=== PATIENT | female | born 1950 | race Caucasian/White ===

== ENCOUNTER → 2016-04-28 | Day surgery (SDC) | payer OTHER ==
[2016-04-17 14:06] VITALS: BMI 34.0
[~2016-04-28] VITALS: Ht 149.9 cm; Wt 79.1 kg
[~2016-04-28] MED LIST: ASPI-435 PO; BUME0.5T3 PO; CLX20 PO; CYCL10TA6 PO; DYZ PO; ERGO500037 PO; GABA-112 PO; GLAT1INJ INJ; LIDOCAINE HCL 2% 2 ML VIAL (20MG/ML) ONE; MCRK20 PO; MIDAZOLAM HCL 1 MG/ML 2ML VIAL ONE; NEBI10TA2 PO; ONDANSETRON INJ 2 MG/ML 2 ML VIAL ONE; PRLSR20 PO; PROPOFOL IV EMULSION 10 MG/ML 20 ML VIAL IV ONE; SIMV20TA2 PO; SODIUM CHLORIDE 0.9% 500ML 500 ML IV ONE
--- NOTE | 2016-04-28 13:00 | Endo History and Physical ---
History & Physical Date of Service: Apr 28, 2016. Chief Complaint: Gastric ulcers Referring Physician: Dr. Flores History of Present Illness 66 yo CF who presents for EGD secondary to gastric ulcers. Past Medical History High Cholesterol, Hypertension, CVA/TIA, Other Past Surgical History Hx Cardiac Surgery: No Hx Internal Defibrillator: No Hx Pacemaker: No Hx Abdominal Surgery: Yes (RACHEL, EXPLORATORY LAP, APPY, PARTIAL HYSTER) Hx of Implantable Prosthesis: No Hx Post-Op Nausea and Vomiting: No Hx Cancer Surgery: No Hx Thoracic Surgery: No Hx Orthopedic: Yes (BACK SURGERY X7, LT ANKLE SURGERY S/P BREAK, LT SHOULDER) Hx Urinary Tract Surgery: Yes (UNSUCCESSFUL KIDNEY STONE RETRIEVAL) Family History Colon CA Social History Smoking Status: Current Every Day Smoker Hx Substance Use: No Hx Alcohol Use: Yes (SOCIALLY) Allergies Uncoded Allergies: STEROIDS (Allergy, Unknown, "I'M JUST OUT OF MY MIND AND HAVE SEIZURE-LIKE ACTIVITY", 02/11/16) Current Medications Reported Home Medications Medications Dose Route/Sig Max Daily Dose Days Date Category Dose Instructions Flexeril (Cyclobenzaprine Hcl) 10 Mg Tab 10 Mg PO TID 03/07/16 Reported Vitamin D 06123 Unit (Ergocalciferol) 50,000 Unit Cap 50,000 Unit PO WK 02/11/16 Reported Bumetanide 0.5 Mg Tab 1 Tab PO QAM 02/11/16 Reported Aspirin 81 (Aspirin) 81 Mg Tab 1 Tab PO QAM 02/11/16 Reported Neurontin (Gabapentin) 100 Mg Cap 100 Mg PO TID 02/11/16 Reported Prilosec (Omeprazole) 20 Mg Capcr 20 Mg PO QAM 02/11/16 Reported Copaxone (Glatiramer Acetate) 40 Mg/Ml Inj 1 Ml INJ UD 02/11/16 Reported Thursday/Thursday/Thursday Bystolic (Nebivolol Hcl) 10 Mg Tab 10 Mg PO HS 11/09/12 Reported Klor-Con (Potassium Chloride) 20 Meq Tabcr 20 Meq PO BID 11/09/12 Reported Celexa * (Citalopram Hydrobromide) 40 Mg Tab 0.5 Tab PO HS 02/05/11 Reported Dyazide 37.5MG/25MG * (Triamterene/HCTZ) Cap 1 Tab PO QAM 02/03/11 Reported Zocor (Simvastatin) 20 Mg Tab 20 Mg PO HS 02/03/11 Reported Celexa * (Citalopram Hydrobromide) 40 Mg Tab 40 Mg PO QAM 02/03/11 Reported Vital Signs Weight (Kilograms): 79.09 Height (Feet): 4 Height (Inches): 11.5 Physical Exam General Appearance: WD/WN, no apparent distress Respiratory/Chest: Auscultation: breath sounds normal Cardiovascular: Heart Auscultation: RRR Abdomen: Bowel Sounds: normal Inspection & Palpation: soft, non-distended, no tenderness, guarding & rebound Assessment and Plan Assessment: 66 yo CF who presents for EGD secondary to gastric ulcers. Plan: Proceed with EGD.
[2016-04-28 13:02] VITALS: Ht 149.9 cm; Wt 79.1 kg
--- NOTE | 2016-04-28 13:44 | GI REPORT ---
Procedure Date: 04/28/2016 1:27 PM THIS REPORT HAS BEEN AMENDED Addendum Number: 1 Addendum Date: 05/20/2016 1:30:57 PM No specimens were obtained during this procedure, and therefore, no pathology is pending. Patient is to continue current therapy and followup in our office for persistent symptoms. Procedure: Upper GI endoscopy Indications: Follow-up of acute gastric ulcer Medicines: Monitored Anesthesia Care Complications: No immediate complications. Estimated Blood Loss: Estimated blood loss: none. Procedure: Pre-Anesthesia Assessment: - Prior to the procedure, a History and Physical was performed, and patient medications and allergies were reviewed. The patient's tolerance of previous anesthesia was also reviewed. The risks and benefits of the procedure and the sedation options and risks were discussed with the patient. All questions were answered, and informed consent was obtained. Prior Anticoagulants: The patient has taken aspirin, last dose was 1 day prior to procedure. ASA Grade Assessment: II - A patient with mild systemic disease. After reviewing the risks and benefits, the patient was deemed in satisfactory condition to undergo the procedure. After obtaining informed consent, the endoscope was passed under direct vision. Throughout the procedure, the patient's blood pressure, pulse, and oxygen saturations were monitored continuously. The scope was introduced through the mouth, and advanced to the second part of duodenum. The upper GI endoscopy was accomplished without difficulty. The patient tolerated the procedure well. Findings: The esophagus was normal. Localized mild inflammation characterized by erosions was found in the gastric antrum. The examined duodenum was normal. Impression: - Normal esophagus. - Gastritis. - Normal examined duodenum. - No specimens collected. Recommendation: - Resume previous diet. - Continue present medications. - Await pathology results. - Return to GI clinic as previously scheduled. Geraldo Ada Love, 04/28/2016 1:44:02 PM This report has been signed electronically. Note Initiated On: 04/28/2016 1:27 PM I attest to the content of the Intraoperative Record and orders documented therein, exceptions below Geraldo Caballero Ivan, DO 05/20/2016 1:31:49 PM This report has been signed electronically.
--- NOTE | 2016-04-28 13:44 | Discharge Instructions ---
Endoscopy Patient Instructions Date / Procedure(s) Performed Apr 28, 2016. EGD Allergy Information Uncoded Allergies: STEROIDS (Allergy, Unknown, "I'M JUST OUT OF MY MIND AND HAVE SEIZURE-LIKE ACTIVITY", 02/11/16) Discharge Date / Findings Apr 28, 2016. Gastritis s/p biopsies Medication Instructions Stopped Medication(s): hold all except the BP meds taken. OK to resume all medications today as prescribed. Reported Home Medications Medications Dose Route/Sig Max Daily Dose Days Date Category Dose Instructions Flexeril (Cyclobenzaprine Hcl) 10 Mg Tab 10 Mg PO TID 03/07/16 Reported Vitamin D 53610 Unit (Ergocalciferol) 50,000 Unit Cap 50,000 Unit PO WK 02/11/16 Reported Bumetanide 0.5 Mg Tab 1 Tab PO QAM 02/11/16 Reported Aspirin 81 (Aspirin) 81 Mg Tab 1 Tab PO QAM 02/11/16 Reported Neurontin (Gabapentin) 100 Mg Cap 100 Mg PO TID 02/11/16 Reported Prilosec (Omeprazole) 20 Mg Capcr 20 Mg PO QAM 02/11/16 Reported Copaxone (Glatiramer Acetate) 40 Mg/Ml Inj 1 Ml INJ UD 02/11/16 Reported Thursday/Thursday/Thursday Bystolic (Nebivolol Hcl) 10 Mg Tab 10 Mg PO HS 11/09/12 Reported Klor-Con (Potassium Chloride) 20 Meq Tabcr 20 Meq PO BID 11/09/12 Reported Celexa * (Citalopram Hydrobromide) 40 Mg Tab 0.5 Tab PO HS 02/05/11 Reported Dyazide 37.5MG/25MG * (Triamterene/HCTZ) Cap 1 Tab PO QAM 02/03/11 Reported Zocor (Simvastatin) 20 Mg Tab 20 Mg PO HS 02/03/11 Reported Celexa * (Citalopram Hydrobromide) 40 Mg Tab 40 Mg PO QAM 02/03/11 Reported Provider Instructions Activity Restrictions - No exercising or heavy lifting for 24 hours. - Do not drink alcohol the day of the procedure. - Do not drive a car or operate machinery until the day after the procedure. - Do not make any important decisions or sign important papers in 24 hours after the procedure. Following Day: - Return to full activity which may include returning to work/school. Diet Start your diet with liquids and light foods (jello, soup, juice, toast). Then eat your usual diet if not nauseated. Treatment For Common After Affects For mild abdominal pain, bloating, or excessive gas: - Rest - Eat lightly - Lie on right side Follow-Up Information Follow-up with Quinton Flores M.D. as scheduled Anesthesia Information What You Should Know You have had a procedure that required some medicine to reduce anxiety and discomfort. This treatment is called moderate sedation. After receiving the treatment, you may be sleepy, but you will be able to breathe on your own. The effects of the treatment may last for several hours. Follow these instructions along with Activity/Diet recommendations noted above: * Do NOT do anything where dizziness or clumsiness would be dangerous. * Rest quietly at home today, then you can be up and about tomorrow. * Have a responsible person stay with you the rest of today. * You may have had an I.V. today. If so, you may take the dressing off later today. Recommendations Call your doctor if: * Trouble breathing * Continuous vomiting for more than 24 hours * Temperature above 101 degrees * Severe abdominal pain or bloating * Pain not relieved by pain medicine ordered * There is increased drainage or redness from any incision * A large amount of rectal bleeding greater than 2-3 tablespoons. (If you had a polyp/s removed or have hemorrhoids, a small amount of blood - from the rectum is to be expected.) * You have any unanswered questions or concerns. IN THE EVENT OF A SERIOUS EMERGENCY, GO TO THE NEAREST EMERGENCY ROOM Your discharge instructions were prepared by provider Geraldo Love. Patient Instructions Signature Page Deshawnnancy Rgchristina Patient (or Guardian) Signature/Date: I have read and understand the instructions given to me by my caregivers. Caregiver/RN/Doctor Signature/Date: The above-named patient and/or guardian has received patient instructions on this date. + Original Patient Signature Page (only) stays with chart. Please make copy for patient.
--- NOTE | 2016-04-28 13:55 | Anesthesiology Progress Note ---
Anesthesia Post Op Note Date & Time Apr 28, 2016 at 13:55 Vital Signs Pain Intensity: 0 Vital Signs Past 12 Hours Date Time Temp Pulse Resp B/P Pulse Ox O2 Delivery O2 Flow Rate FiO2 04/28/16 13:43 59 16 90/48 95 Mask 5 04/28/16 13:11 36.4 73 18 132/68 96 Room Air Notes Mental Status: alert / awake / arousable, participated in evaluation Pt Amnestic to Procedure: Yes Nausea / Vomiting: adequately controlled Pain: adequately controlled Airway Patency, RR, SpO2: stable & adequate BP & HR: stable & adequate Hydration State: stable & adequate Anesthetic Complications: no major complications apparent
[2016-04-28 14:13] VITALS: BP 104/54; PULSE 69; O2SAT 93
== END | disposition home or self-care (01) ==
LOC: C.GI 12:21 → MERGE 12:21
PROVIDERS: ATTEND Internal Medicine
DX: K29.70 Gastritis, unspecified, without bleeding (principal); E78.00 Pure hypercholesterolemia, unspecified; I10 Essential (primary) hypertension; F17.200 Nicotine dependence, unspecified, uncomplicated; Z79.82 Long term (current) use of aspirin; Z86.73 Personal history of transient ischemic attack (TIA), and cerebral infarction without residual deficits; Z90.710 Acquired absence of both cervix and uterus; Z90.49 Acquired absence of other specified parts of digestive tract; Z87.442 Personal history of urinary calculi; Z80.0 Family history of malignant neoplasm of digestive organs

== ENCOUNTER → 2016-05-19 | Outpatient (CLI) | payer OTHER ==
[~2016-05-19] MED LIST changes: -LIDOCAINE HCL 2% 2 ML VIAL (20MG/ML) ONE; -MIDAZOLAM HCL 1 MG/ML 2ML VIAL ONE; -ONDANSETRON INJ 2 MG/ML 2 ML VIAL ONE; -PROPOFOL IV EMULSION 10 MG/ML 20 ML VIAL IV ONE; -SODIUM CHLORIDE 0.9% 500ML 500 ML IV ONE
[2016-05-19 14:39] LABS: BASO % 0.5 %; BASO ABS # 0.04 K/uL (0-0.2); COMPLETE YES; EOS % 2.1 %; HEMATOCRIT 49.1 % (37-47); IG% 0.2 %; LYMPH % 34.3 %; LYMPH ABS # 2.88 K/uL (1.2-3.4); MEAN CELL VOLUME 88.6 fL (80-100); MEAN CORPUSCULAR HEMOGLOBIN 29.8 pg (25-34); MEAN CORPUSCULAR HGB CONC 33.6 g/dl (32-36); MEAN PLATELET VOLUME 11.6 fL (7.4-10.4); MONO % 7.3 %; NEUT % 55.6 %; PLATELET COUNT 283 K/uL (130-400); RED BLOOD COUNT 5.54 M/uL (4.2-5.4); WHITE BLOOD COUNT 8.39 K/uL (4.8-10.8)
[2016-05-19 15:13] LABS: ALT/SGPT 23 U/L (12-78); AST/SGOT 13 U/L (15-37); BLOOD UREA NITROGEN 23 mg/dl (7-18); BUN/CREATININE RATIO 20.9 (10-20); CALCIUM 9.2 mg/dl (8.5-10.1); CARBON DIOXIDE 29 mmol/L (21-32); CHLORIDE 96 mmol/L (98-107); CHOLESTEROL 150 mg/dl (0-200); GLUCOSE 96 mg/dl (70-99); POTASSIUM 2.8 mmol/L (3.5-5.1); SODIUM 137 mmol/L (136-145)
[2016-05-19 15:22] LABS: ALB/GLOB RATIO 0.9 (0.9-2); ALKALINE PHOSPHATASE 119 U/L (45-117); CHOLESTEROL/HDL RATIO 3.2; HDL CHOLESTEROL 47 mg/dl; LDL CHOLESTEROL CALCULATED 62 mg/dl; TRIGLYCERIDES 203 mg/dl (0-150); VERY LOW DENSITY LIPOPROT CALC 41 mg/dl
[2016-05-20 06:36] LABS: ESTIMATED AVERAGE GLUCOSE 108 mg/dl; HA1C FLAG Normal (Normal)
== END | disposition home or self-care (01) ==
LOC: MERGE 13:00 → C.LAB 13:00
PROVIDERS: ATTEND Hospitalist
DX: I10 Essential (primary) hypertension (principal); E55.9 Vitamin D deficiency, unspecified; E78.00 Pure hypercholesterolemia, unspecified; E53.8 Deficiency of other specified B group vitamins; E10.9 Type 1 diabetes mellitus without complications; R53.1 Weakness

== ENCOUNTER → 2016-05-27 | Outpatient (CLI) | payer OTHER ==
[~2016-05-27] MED LIST changes: +GADAVIST IV PRN
--- NOTE | 2016-05-27 14:07 | DIAGNOSTIC IMAGING REPORT ---
Brain MRI WITH AND WITHOUT CONTRAST HISTORY: Multiple sclerosis. Follow-up. TECHNIQUE: Multiplanar multisequence MRI of the brain was performed both before and after the intravenous administration of contrast. COMPARISON STUDY: Brain MRI 05/29/2015. FINDINGS: Stable small retention cyst within the right maxillary sinus. Punctate old lacunar infarct within the right cerebellar hemisphere. There is no hematoma, midline shift, or acute infarct. The ventricles and sulci are within normal limits. The major vascular flow voids at the skull base are maintained. The midline structures are intact. Increase in size in the 11 x 8 x 5 mm T2 hyperintense, T1 hypointense extra-axial enhancing mass within the right parafalcine location best seen on image 18 of the axial T1 postcontrast sequences. This favors a meningioma. No additional areas of enhancement within the brain to suggest active demyelination. There again noted multiple scattered areas of T2 hyperintensity within the periventricular and subcortical white matter of the supratentorial brain. This is consistent with the patient's history of multiple sclerosis. The white matter plaques are not significantly changed in size, number, or distribution. IMPRESSION: 1. No significant change in the scattered white matter plaques within the supratentorial brain consistent with the patient's history of multiple sclerosis. No evidence for active demyelination. 2. Increase in size in the 11 x 8 x 5 mm extra-axial enhancing right parafalcine mass. This likely represents a meningioma. Continued follow-up is recommended to assess for stability. Electronically signed by: Medhat Salinas M.D. 05/27/2016 2:05 PM Dictated Date/Time: 05/27/2016 1:56 PM
--- NOTE | 2016-05-27 15:29 | DIAGNOSTIC IMAGING REPORT ---
MRI OF THE CERVICAL SPINE COMBO CLINICAL HISTORY: Multiple sclerosis. Neck pain. COMPARISON STUDY: MRI of the cervical spine dated 06/20/2011. TECHNIQUE: MRI of the cervical spine is performed utilizing various T1 and T2-weighted sequences in the axial and sagittal planes. Contrast-enhanced sequences are acquired following the IV administration of 8 cc of Gadavist. The examination is modestly degraded by motion artifact. FINDINGS: Cervical spine: Vertebral body height and alignment are maintained throughout the cervical spine. No destructive bony process is seen. Marrow signal intensity is homogeneous. The atlantodental articulation appears maintained. The spinous processes are intact. A tiny hemangioma is noted in the body of T2. Intervertebral discs: There is mild degenerative disc desiccation seen throughout the cervical spine. No loss of height is identified. Spinal cord: The cervical spinal cord is normal in morphology and signal intensity. No foci of abnormal enhancement are identified on the postcontrast images. MRI of the brain performed concurrently on 05/27/2016. C2-C3: Unremarkable. C3-C4: There is a tiny posterior disc osteophyte complex eccentric to the left. Uncovertebral and facet arthropathy cause mild to moderate left and minimal right neural foraminal stenosis. C4-C5: A posterior disc osteophyte complex effaces the ventral subarachnoid space. Uncovertebral and facet arthropathy cause moderate left and minimal right neural foraminal stenosis. C5-C6: Unremarkable. C6-C7: Unremarkable. C7-T1: Unremarkable. Soft tissues: The prevertebral and paraspinous soft tissues are within normal limits. Brain parenchyma: A T2-hyperintense plaque is identified in the josafat. The cerebellar tonsils are normal in configuration. Periventricular white matter change is also identified. IMPRESSION: 1. The cervical spinal cord is normal in morphology and signal intensity. 2. Minimal spondylotic change as above. The central canal is widely patent. 3. T2-hyperintense plaques are noted in the brain parenchyma at the skull base. See report of MRI of the brain performed concurrently for detailed intracranial findings. Dictated: 05/27/2016 2:56 PM Transcribed: 05/27/2016 3:29 PM Almaz Electronically signed by: Elvis Terrell M.D. 05/27/2016 3:35 PM Dictated Date/Time: 05/27/2016 2:56 PM
== END | disposition home or self-care (01) ==
LOC: C.MRI 12:15
PROVIDERS: ATTEND Psychiatry & Neurology Neurology
DX: G35 Multiple sclerosis (principal); R22.0 Localized swelling, mass and lump, head

== ENCOUNTER → 2017-06-24 | Outpatient (CLI) | payer OTHER ==
[2017-06-24 08:04] LABS: BLOOD UREA NITROGEN 30 mg/dl (7-18); CREATININE 1.55 mg/dl (0.60-1.20)
--- NOTE | 2017-06-24 10:47 | DIAGNOSTIC IMAGING REPORT ---
BRAIN COMBO FOR MS CLINICAL HISTORY: 67 years-old Female presenting with G35 Multiple sclerosis M54.12 Cervical radiculopathy, gait disturbance, leg weakness. TECHNIQUE: Multisequence, multiplanar MR imaging of the brain was performed before and after the administration of intravenous contrast. IV contrast: 8 mL of Gadavist. COMPARISON: 05/27/2016. FINDINGS: Ventricles and sulci normal in size. Redemonstration of extensive T2/FLAIR hyperintense foci of abnormal signal within subcortical white matter, centrum semiovale, and waggoner radiata. The corpus callosum is involved. Allowing for the extensive involvement, there is no significant change in size, number, or distribution of white matter lesions. No associated restricted diffusion or enhancement. No mass effect or midline shift. No hemorrhage. No extra-axial fluid collection. However, redemonstration of the extra-axial avidly enhancing mass along the right aspect falx cerebri at the level of the central sulcus. This mass now measures 12 x 8 x 13 mm, previously 8 x 5 x 11 mm. A prominent dural tail is evident. T2 skull base flow voids preserved. Bone marrow signal intensity within the calvarium within normal limits. Bilateral [place]ct[place] lenses are absent. IMPRESSION: 1. Slight interval increase in size of the presumed meningioma along the right aspect of the falx cerebri at the level of the central sulcus. 2. No synechia change in size, number, distribution of white matter lesions, which could be compatible with demyelinating disease though these are nonspecific. No enhancement or restricted diffusion to suggest active disease. Electronically signed by: Jonh Jett M.D. 06/24/2017 10:45 AM Dictated Date/Time: 06/24/2017 10:36 AM
--- NOTE | 2017-06-24 10:54 | DIAGNOSTIC IMAGING REPORT ---
CERVICAL SPINE COMBO CLINICAL HISTORY: 67 years-old Female presenting with G35 Multiple sclerosis M54, leg weakness, gait disturbance, cervical reticular with the. TECHNIQUE: Multisequence, multiplanar MR imaging of the cervical spine was performed before and after the administration of intravenous contrast. IV contrast: 8 mL of Gadavist. COMPARISON: 05/27/2016. FINDINGS: Localizer images: Unremarkable. Normal cervical lordosis. Vertebral bodies maintain normal height, alignment, bone marrow signal intensity. Diffuse intervertebral disc desiccation with small disc osteophyte complexes noted at nearly every level to varying degrees. Multilevel degenerative changes further detailed below: C2-3: No significant neural foraminal or spinal canal stenosis. C3-4: Left uncovertebral hypertrophy results in mild left neural foraminal narrowing. Mild effacement of the left lateral recess without contouring of the spinal cord. C4-5: Disc osteophyte complex results in central effacement of the anterior thecal sac without contouring the spinal cord. No significant neural foraminal narrowing. C5-6: No significant neural foraminal or spinal canal stenosis. C6-7: Small disc osteophyte complex and uncovertebral hypertrophy result in mild bilateral neural foraminal narrowing. No significant spinal canal stenosis. C7-T1: No cervical neural foraminal or spinal canal stenosis. Cervical spinal cord normal in morphology and signal intensity. No focal spinal cord lesion. No abnormal enhancement on postcontrast imaging. No paraspinal muscular edema. Paraspinal soft tissues within normal limits. IMPRESSION: 1. No evidence of a spinal cord lesion to suggest to mildly disease. 2. Mild multilevel degenerative changes with mild neural foraminal narrowing evident on the left at C3-4 and mild bilateral at C6-7. No significant spinal canal stenosis. Electronically signed by: Jonh Jett M.D. 06/24/2017 10:53 AM Dictated Date/Time: 06/24/2017 10:45 AM
== END | disposition home or self-care (01) ==
LOC: C.MRI 07:21
PROVIDERS: ATTEND Psychiatry & Neurology Neurology
DX: M47.22 Other spondylosis with radiculopathy, cervical region (principal); R94.02 Abnormal brain scan; G35 Multiple sclerosis; R29.898 Other symptoms and signs involving the musculoskeletal system; W19.XXXA Unspecified fall, initial encounter

== ENCOUNTER → 2017-07-27 | Outpatient (CLI) | payer OTHER ==
--- NOTE | 2017-07-27 10:10 | DIAGNOSTIC IMAGING REPORT ---
THORACIC SPINE MRI WITH AND WITHOUT CONTRAST HISTORY: G35 Multiple [id number] Leg weakness, bilateral TECHNIQUE: Multiplanar multisequence MRI of the thoracic spine was performed both before and after the intravenous administration of contrast. COMPARISON: Brain MRI 06/24/2017. Cervical spine MRI 06/24/2017. FINDINGS: No fractures or subluxation within the thoracic spine. Posterior decompression fusion from T12 through the lumbar spine with pedicle screws and rods. Small broad-based posterior disc bulges seen from T7 through T11 resulting in minimal central canal narrowing. As also small focal central disc protrusion at T6-T7 resulting in minimal anterior cord deformity. The thoracic spinal cord demonstrates a normal signal intensity. No abnormal enhancement within the thoracic spine or thoracic spinal cord. Mild to moderate bilateral neural foraminal narrowing seen within the lower thoracic spine most pronounced at the T9-T10 and T10-T11 levels. Paraspinal soft tissues are unremarkable. An 8 mm cyst within the left kidney. No epidural masses or fluid collections identified. IMPRESSION: 1. No abnormal signal intensity or enhancement within the thoracic spinal cord to suggest demyelinating disease. 2. Degenerative changes within the mid to lower thoracic spine as described above. 3. Posterior decompression and fusion seen at T12 and extending into the lumbar spine Electronically signed by: Medhat Salinas M.D. 07/27/2017 10:09 AM Dictated Date/Time: 07/27/2017 9:56 AM
== END | disposition home or self-care (01) ==
LOC: C.MRI 08:06
PROVIDERS: ATTEND Physician Assistant
DX: M47.814 Spondylosis without myelopathy or radiculopathy, thoracic region (principal); G35 Multiple sclerosis; R29.898 Other symptoms and signs involving the musculoskeletal system

== ENCOUNTER 2020-01-05 11:33 | Observation (INO) ==
[2020-01-05 12:45] LABS: Basophils # (auto) 0.03 K/uL (0-0.2); Basophils % (auto) 0.3 %; Eosinophils # (auto) 0.11 K/uL (0-0.5); Eosinophils % (auto) 0.9 %; Hematocrit (blood only) 39.6 % (37-47); Hemoglobin 13.3 g/dL (12.0-16.0); Immature Granulocytes # (auto) 0.02 K/uL (0.00-0.02); Immature Granulocytes % (auto) 0.2 %; Lymphocytes # (auto) 1.72 K/uL (1.2-3.4); Lymphocytes % (auto) 14.8 %; Mean Corpuscular Hgb Conc 33.6 g/dL (32-36); Mean Corpuscular Volume 95.4 fL (80-100); Mean Platelet Volume 9.8 fL (7.4-10.4); Monocytes # (auto) 0.41 K/uL (0.11-0.59); Monocytes % (auto) 3.5 %; Neutrophils # (auto) 9.33 K/uL (1.4-6.5); Neutrophils % (auto) 80.3 %; Platelet Count 304 K/uL (130-400); RDW Coefficient of Variation 14.7 % (11.5-14.5); RDW Standard Deviation 50.8 fL (36.4-46.3); Red Blood Count 4.15 M/uL (4.2-5.4); White Blood Count 11.62 K/uL (4.8-10.8)
[2020-01-05 12:46] LABS: Appearance Urine Clear (Clear); Bacteria Urine Automated Negative (Negative); Bilirubin Urine Negative (Negative); Blood Urine Negative (Negative); Color Urine Yellow; Epithelial Cell Urine Auto >30 /lpf (0-5); Glucose Urine UA Negative (Negative); Ketones Urine Negative (Negative); Leukocyte Esterase Urine 1+ (Negative); Nitrite Urine Negative (Negative); Protein Urine Trace (Negative); RBC Urine Automated 0-4 /hpf (0-4); Specific Gravity Urine 1.015 (1.000-1.030); Urobilinogen Urine Negative (Negative); WBC Urine Automated >30 /hpf (0-5); pH Urine 5.5 (4.5-7.5)
[2020-01-05] MEDS ORDERED: ONDANSETRON INJ 2 MG/ML 2 ML VIAL IV STA (13:12)
[2020-01-05] MEDS ORDERED: cefTRIAXone SODIUM 1,000 MG/50 ML BAG IV STA (13:12)
[2020-01-05] MEDS ORDERED: MoRPHine SULFATE 10 MG/ML CARP/VIAL IV STA (13:12)
--- NOTE | 2020-01-05 13:12 | Emergency Department Note ---
Impression & Plan Acute flank pain, Acute pyelonephritis, Acute UTI ED Provider Note NAME: JASWINDER PHELPS AGE: 69 SEX: F : 1950 ARRIVES VIA: Walk-In INFORMANT: Patient ED PROVIDER(S): Daryl Banuelos DO CHIEF COMPLAINT: Left flank pain HPI: Patient is a 69-year-old female who presents the ER for left flank pain. This has been present for the past 1.5 weeks. It has gradually moved from her back to the left flank. 8 out of 10. History of cholecystectomy, appendectomy and partial hysterectomy. She does have some urinary frequency over the past couple days. She notes she has to push to pee. She had blood work done by her PCP and showed she had acute kidney injury and was referred in for further evaluation. She denies any nausea vomiting or diarrhea. No other exacerbating or remitting factors. No fevers above 100.4. ROS: See above HPI for pertinent positives & negatives. A total of 10 systems reviewed and were otherwise negative. PAST MEDICAL HISTORY:See Below PAST SURGICAL HISTORY:See Below FAMILY HISTORY:See Below SOCIAL HISTORY:See Below HOME MEDICATIONS:See Below ALLERGIES:See Below VITALS:See Below PHYSICAL EXAMINATION: GENERAL: Sitting up in bed, obese, alert, holding left flank, moderate distress EYE EXAM: normal conjunctiva OROPHARYNX: no exudate, no erythema, lips, buccal mucosa, and tongue normal and mucous membranes are moist NECK: supple, no nuchal rigidity, no adenopathy, non-tender LUNGS: Clear to auscultation. Normal chest wall mechanics HEART: no murmurs, S1 normal and S2 normal ABDOMEN: abdomen soft, non-tender, normo-active bowel sounds, no masses, no rebound or guarding. BACK: Back is symmetrical on inspection and there is no deformity, no midline tenderness, tenderness throughout left flank SKIN: no rashes and no bruising UPPER EXTREMITIES: upper extremities are grossly normal. LOWER EXTREMITIES: No pitting edema. NEURO EXAM: Normal sensorium, cranial nerves II-XII grossly intact, normal speech, no gross weakness of arms, no gross weakness of legs. MEDICAL DECISION MAKING: Patient is a 69-year-old female who presents ER for left flank pain which is been severely worsening. Urinary frequency present. IV was established blood work was obtained. Labs show leukocytosis 11.6 thousand. No significant anemia. BMP with mild hypokalemia. Creatinine slightly elevated at 1.9 up from a baseline of 1.2. LFTs bilirubin was unremarkable. UA with white cells and leukocytes which does suggest UTI although was contaminated with epithelial cells. Patient was seen and evaluated by PCP. Creatinine was elevated. She was referred in for admission. CT abdomen pelvis was fairly unremarkable. Patient was updated and given IV antibiotics including Rocephin and fluids as well as IV morphine. Discussed with hospitalist for further evaluation. Triage Nursing notes reviewed. Prior medical records reviewed Vital Signs: reviewed and remarkable for HTN Differential diagnosis: Differential diagnoses includes but is not limited to gastritis, peptic ulcer disease, GERD, gallbladder disease, pancreatitis, small bowel obstruction, acute coronary syndrome, pericarditis, ischemic bowel, irritable bowel disease, irritable bowel syndrome, appendicitis, diverticulitis, malignancy, hernia, urinary tract infection, torsion, [/ectopic (if female)], perforation, trauma, infectious. ER treatment provided: See below Diagnostics interpreted by me: ECG: none Cardiac Monitoring: An order was placed for continuous cardiac monitoring. The monitor shows a rate of 60 with sinus rhythm. Laboratory studies: As stated above and show below. Imaging studies: CT abdomen pelvis was unremarkable Consultation(s): Discussed with Dr. Jovanny Hurst for further evaluation ED COURSE: Procedures: none Critical Care: None Past Med/Surg History Medical History (Updated 01/05/20 @ 18:45 by Daryl Banuelos DO) Multiple sclerosis Urinary incontinence Social History Smoking Status: Current every day smoker Tobacco Type: Cigarettes Second Hand Exposure: Yes; Do You Dip or Chew Tobacco: No; Tobacco Cessation Education Requested by Patient: No Hx Alcohol Use: No Hx Substance Use: No Preferred Language: Slovak Beliefs That Will Affect Care: None Current Living Situation: Spouse Other Information That Helps Us Care for You: No Feels Safe at Home: Yes Safety Concerns: Feels Safe At This Time Assistive Devices: Denture - Upper and Glasses Allergies Allergies Allergy/AdvReac Type Severity Reaction Status Date / Time STEROIDS Allergy Unknown "I'M JUST Uncoded 01/05/20 12:59 OUT OF MY MIND AND HAVE SEIZURE-LIKE ACTIVITY" Home Meds Home Medications Medication Instructions Recorded Confirmed [id number] 1 tab PO QAM 04/18/19 01/05/20 oxybutynin chloride 5 mg 5 mg PO QAM PRN tab 04/18/19 01/05/20 tablet,extended release 24 hr cholecalciferol (vitamin D3) 125 5,000 units PO QAM tab 04/25/19 01/05/20 mcg (5,000 unit) tablet clonazepam 1 mg tablet 2 mg PO HS tab 04/25/19 01/05/20 escitalopram oxalate 20 mg tablet 30 mg PO QAM tab 04/25/19 01/05/20 furosemide 40 mg tablet 40 mg PO QAM tab 04/25/19 01/05/20 melatonin 10 mg capsule 10 mg PO HS cap 04/25/19 01/05/20 simvastatin 20 mg tablet 20 mg PO QAM tab 04/25/19 01/05/20 aspirin 81 mg PO QAM 01/05/20 01/05/20 cranberry 1,000 mg PO QAM 01/05/20 01/05/20 ibuprofen 600 mg PO Q6H PRN 01/05/20 01/05/20 nebivolol [Bystolic] 10 mg PO QAM 01/05/20 01/05/20 oxycodone 5 mg PO Q6H PRN 01/05/20 01/05/20 Results & Data (ED) Vital Signs Vital Signs - 24 hr 01/05/20 11:37 01/05/20 12:31 01/05/20 13:00 Temperature 36.9 C Temperature Source Oral Pulse Rate 70 60 63 Respiratory Rate 20 19 21 Respiratory Effort / Characteristics Non-Labored Respiratory Depth Normal Blood Pressure 145/62 H 140/55 L 119/66 Blood Pressure Mean 89 89 75 Pulse Oximetry 95 95 96 Oxygen Delivery Method Room Air Sepsis Recent Fever Within 48 Hours No Sepsis New/Unexplained Change in Mental Status N/A Sepsis Action Taken by Nursing No Action Required 01/05/20 14:31 01/05/20 15:00 01/05/20 15:31 Temperature Temperature Source Pulse Rate 70 65 64 Respiratory Rate 17 20 23 Respiratory Effort / Characteristics Respiratory Depth Blood Pressure 114/56 L 118/55 L 128/86 Blood Pressure Mean 70 75 103 Pulse Oximetry 96 95 96 Oxygen Delivery Method Sepsis Recent Fever Within 48 Hours Sepsis New/Unexplained Change in Mental Status Sepsis Action Taken by Nursing Laboratory Data Result diagrams: 01/05/20 12:30 01/05/20 12:30 Lab Results 01/05/20 01/05/20 01/05/20 Range/Units 12:30 12:30 12:30 WBC 11.62 H (4.8-10.8) K/uL RBC 4.15 L (4.2-5.4) M/uL Hgb 13.3 (12.0-16.0) g/dL Hct 39.6 (37-47) % MCV 95.4 (80-100) fL MCH 32.0 (25-34) pg MCHC 33.6 (32-36) g/dL RDW Std Deviation 50.8 H (36.4-46.3) fL RDW Coeff of Job 14.7 H (11.5-14.5) % Plt Count 304 (130-400) K/uL MPV 9.8 (7.4-10.4) fL Immature Gran % (Auto) 0.2 % Neut % (Auto) 80.3 % Lymph % (Auto) 14.8 % Bracken % (Auto) 3.5 % Eos % (Auto) 0.9 % Baso % (Auto) 0.3 % Neut # (Auto) 9.33 H (1.4-6.5) K/uL Lymph # (Auto) 1.72 (1.2-3.4) K/uL Bracken # (Auto) 0.41 (0.11-0.59) K/uL Eos # (Auto) 0.11 (0-0.5) K/uL Baso # (Auto) 0.03 (0-0.2) K/uL Immature Gran # (Auto) 0.02 (0.00-0.02) K/uL Sodium 140 (136-145) mmol/L Potassium 3.1 L (3.5-5.1) mmol/L Chloride 107 (98-107) mmol/L Carbon Dioxide 24 (21-32) mmol/L Anion Gap 9.0 (3-11) BUN 23 H (7-18) mg/dl Creatinine 1.88 H (0.6-1.2) mg/dl Est Cr Clr Drug Dosing 23.9 ml/min Est GFR ( Amer) 30.6 Est GFR (Non-Af Amer) 26.4 BUN/Creatinine Ratio 12.1 (10-20) Glucose 187 H (70-99) mg/dl Calcium 9.2 (8.5-10.1) mg/dl Total Bilirubin 0.4 (0.2-1) mg/dl AST 20 (15-37) U/L ALT 30 (12-78) U/L Alkaline Phosphatase 90 (45-117) U/L Total Protein 7.6 (6.4-8.2) gm/dl Albumin 3.5 (3.4-5.0) gm/dl Globulin 4.1 H (2.5-4.0) gm/dl Albumin/Globulin Ratio 0.9 (0.9-2) Specimen Hemolysis Urine Color Yellow Urine Appearance Clear (Clear) Urine pH 5.5 (4.5-7.5) Ur Specific [place] 1.015 (1.000-1.030) Urine Protein Trace H (Negative) Urine Glucose (UA) Negative (Negative) Urine Ketones Negative (Negative) Urine Blood Negative (Negative) Urine Nitrite Negative (Negative) Urine Bilirubin Negative (Negative) Urine Urobilinogen Negative (Negative) Ur Leukocyte Esterase 1+ H (Negative) Urine WBC (Auto) >30 H (0-5) /hpf Urine RBC (Auto) 0-4 (0-4) /hpf U Hyaline Cast (Auto) 1-5 (0-5) /lpf U Epithel Cells (Auto) >30 H (0-5) /lpf Urine Bacteria (Auto) Negative (Negative) Administered Medications Hydromorphone HCl (Hydromorphone Inj 0.5 Mg/0.5 Ml Syr) 0.5 mg IV Q1H PRN PRN Reason: Severe Pain Stop: 01/19/20 17:37 Last Admin: 01/05/20 17:47 Dose: 0.5 mg Documented by: [id number] Potassium Chloride 40 meq/ (Sodium Chloride) 1,020 mls @ 150 mls/hr IV .Q6H48M [facility] Stop: 02/04/20 17:37 Last Admin: 01/05/20 18:35 Dose: 150 mls/hr Documented by: [id number] Insulin Aspart (Insulin Aspart 100 Units/Ml 3 Ml Pen) 0 units SC ACHS [facility] Stop: 02/04/20 17:37 Last Admin: 01/05/20 17:55 Dose: Not Given Documented by: [id number] Cosigned by: [id number] Lidocaine (Lidocaine 5% 1 Patch) 1 patch TD QAM [facility] Stop: 02/04/20 17:37 Last Admin: 01/05/20 18:35 Dose: 1 patch Documented by: [id number] Discontinued Medications Diphenhydramine HCl (Diphenhydramine Hcl 50 Mg/Ml Vial) 25 mg IV NOW STA Stop: 01/05/20 13:47 Last Admin: 01/05/20 14:09 Dose: 25 mg Documented by: [id number] Ceftriaxone Sodium (Rocephin) 1,000 mg in 50 mls @ 100 mls/hr IV NOW STA Stop: 01/05/20 13:41 Last Infusion: 01/05/20 13:39 Dose: 0 mls/hr Documented by: [id number] Admin: 01/05/20 13:21 Dose: 100 mls/hr Documented by: [id number] Sodium Chloride (Nss 1000ml) 1,000 mls @ 999 mls/hr IV .Q1H1M ONE Stop: 01/05/20 16:50 Last Admin: 01/05/20 16:55 Dose: 999 mls/hr Documented by: [id number] Morphine Sulfate (Morphine Sulfate 10 Mg/Ml Carp/Vial) 6 mg IV NOW STA Stop: 01/05/20 13:13 Last Admin: 01/05/20 13:20 Dose: 6 mg Documented by: [id number] Ondansetron HCl (Ondansetron Inj 2 Mg/Ml 2 Ml Vial) 4 mg IV NOW STA Stop: 01/05/20 13:13 Last Admin: 01/05/20 13:20 Dose: 4 mg Documented by: [id number] Oxycodone HCl (Oxycodone Hcl Ir 5 Mg Tab (Immediate Release)) 5 mg PO NOW STA Stop: 01/05/20 15:34 Last Admin: 01/05/20 16:09 Dose: 5 mg Documented by: [id number] Discharge Plan Visit Data Chief Complaint: Illness Stated Complaint: ACUTE RENAL FAILURE SENT BY TO ER ED Provider: Daryl Banuelos Discharge Problem: Acute flank pain, Acute pyelonephritis, Acute UTI Patient Disposition: Admitted As Inpatient Discharge Instructions Interventions: ED Discharge Assessment Last Done: 01/05/20 17:21
[2020-01-05 13:13] LABS: Albumin Globulin Ratio 0.9 (0.9-2); Albumin Level 3.5 gm/dl (3.4-5.0); BUN Creatinine Ratio 12.1 (10-20); Bilirubin,Total 0.4 mg/dl (0.2-1); Calcium 9.2 mg/dl (8.5-10.1); Creatinine Clr Calc Pharmacy 23.9 ml/min; Est GFR (African American) 30.6; Est GFR (Non-African American) 26.4; Globulin 4.1 gm/dl (2.5-4.0); Potassium 3.1 mmol/L (3.5-5.1); Total Protein 7.6 gm/dl (6.4-8.2)
[2020-01-05] MEDS ORDERED: diphenhydrAMINE 50 MG/ML VIAL IV STA (13:46)
--- NOTE | 2020-01-05 14:23 | CT Scan Report ---
ABDOMEN AND PELVIS CT WITHOUT CONTRAST CT DOSE: 884.19 mGycm HISTORY: Left flank pain. TECHNIQUE: Multiaxial CT images of the abdomen and pelvis were performed without contrast. A dose lo wering technique was utilized adhering to the principles of ALARA. COMPARISON STUDY: None. FINDINGS: No ureteral stones. No hydronephrosis. A 1.3 cm hypodense lesion within the lower pole the left kidney. This is technically indeterminate on this noncontrast study but favors a cyst. There is mild left cortical renal scarring. There is 7 mm subpleural nodule within the right lower lobe on ronal ge 32. A few bibasilar linear densities consistent with subsegmental atelectasis. No pneumoperitoneum . No pneumatosis. Posterior decompression fusion within the spine from T12 through S1. The associated pedicle screws and rods appear intact. Severe disc space narrowing within the lower thoracic spine. Cholecystectomy. The unenhanced liver, spleen, right adrenal gland, and pancreas are within normal li mits. Mild thickening of the left adrenal gland. There is suggestion of a punctate stone within the u pper pole of the left kidney on image 114. The uterus is surgically absent. Normal bladder. Normal ca liber abdominal aorta. There are few prominent left retroperitoneal lymph nodes. Dominant lymph node measures 9 mm in short axis diameter. No bowel wall thickening or obstruction. Colonic diverticulosis . No evidence for acute diverticulitis. The appendix is not identified and reportedly surgically abse nt. IMPRESSION: 1. Possible punctate stone within the upper pole of the left kidney. No ureteral stones. No hydroneph rosis. 2. A few borderline-enlarged left para-aortic lymph nodes. 3. No definite bowel wall thickening or obstruction. 4. Colonic diverticulosis. No evidence for acute diverticulitis. 5. A 7 mm subpleural nodule within the right lower lobe. Please refer to the chart below for recommen ded follow-up. 6. Prior cholecystectomy, hysterectomy, and appendectomy. 7. Postoperative changes within the spine. Please refer to below summary of Fleischner criteria recommendations for follow-up of incidental CT n odules (Tayler Daniel, Guidelines for management of small pulmonary nodules detected on CT scans: A sta tement from the Fleischner Society, Radiology 237: [phone].) SOLID NODULES Solitary nodule size: <6 mm * Low risk patients: no follow-up needed * high risk patients: optional CT at 12 months Solitary nodule size: 6-8 mm * Low risk patients: follow-up at 6-12 months, then consider further follow-up at 18-24 months * high risk patients: initial follow-up CT at 6-12 months and then at 18-24 months if no change Solitary nodule size: >8 mm * either low or high risk patients - consider follow-up CT at 3 months, and/or CT-PET, and/or biopsy Multiple nodules size: <6 mm * Low risk patients: no routine follow-up * high risk patients: optional CT at 12 months Multiple nodules size: 6-8 mm * Low risk patients: follow-up at 3-6 months, then consider further follow-up at 18-24 months * high risk patients: follow-up at 3-6 months, then at 18-24 months if no change Multiple nodules size: >8 mm * Low risk patients: follow-up at 3-6 months, then consider further follow-up at 18-24 months * high risk patients: follow-up at 3-6 months, then at 18-24 months if no change Note: newly detected indeterminate nodule in persons 35 years of age or older. * Low risk patients: minimal or absent history of smoking and/or other known risk factors * high risk patients: history of smoking or of other known risk factors (e.g. first degree relative with lung cancer, or exposure to asbestos, radon, uranium) * if a nodule up to 8 mm is partly solid or is ground glass further follow-up is required after 24 m onths to exclude possible slow growing adenocarcinoma (GABE) SUBSOLID NODULES Solitary pure ground-glass nodule * nodule size <6 mm - no CT follow-up required * nodule size >=6 mm - follow-up CT at 6-12 months, then every 2 years until 5 years Solitary part-solid nodule * nodule size <6 mm - no CT follow-up required * nodule size >=6 mm - follow-up CT at 3-6 months. If unchanged, and solid component remains <6 mm, then annual follow-up for 5 years Multiple subsolid nodules * nodule size <6 mm - follow-up CT at 3-6 months, consider further follow-up at 2 and 4 years if sta ble * nodule size >=6 mm - follow-up CT at 3-6 months, subsequent management based on the most suspiciou s nodule(s) ACT 112: Negative or not required by law. Electronically signed by: Medhat Salinas M.D. 01/05/2020 2:22 PM
--- NOTE | 2020-01-05 15:11 | History & Physical Report ---
Date of Service January 05, 2020 Assessment & Plan (1) Acute pyelonephritis: HIM request for urine culture allopurinol 2 days ago. UA grossly positive for infection at that time. Failure of outpatient as needed ciprofloxacin, agree with switch to ceftriaxone 1 g IV daily Follow-up urine and blood cultures taken here. (2) Acute kidney injury: In setting of pyelonephritis, dehydration, excessive ibuprofen use. Discontinue Lasix and ibuprofen. Rehydrate with NSS 1 L bolus, followed by NSS+KCl 40 meq (also hypokalemic) @125ml/hr Repeat BMP in a.m. (3) Left flank pain: Suspect combination of pyelonephritis and musculoskeletal back pain Left paraspinal muscle spasm on exam. Lidocaine patch Oxycodone 5 mg every 4 hourly as needed Dilaudid 0.5 mg IV if above ineffective (4) Vitamin D deficiency: Continue Choleciferol 5000 units p.o. every morning (5) Hypertension: Continue nebivolol 10 mg p.o. every morning, hold Lasix. (6) Urinary incontinence: Continue oxybutynin ER 5 mg p.o. nightly (7) Depression: Continue Lexapro 30 mg p.o. every morning Admission and Anticipated Discharge Date Admission Date: 01/05/2020 History of Present Illness Chief Complaint: Acute kidney injury Primary Care Provider: Quinton Flores M.D. Pattie Monge is a 69-year-old female with multiple sclerosis who presents to the ER on the advice of her PCP due to KING on outpatient labs. She reports left- sided back pain which started 1.5 weeks ago without trauma. She denies any prior history of back pain similar to this. She denies any history of renal stones. She does report her urine was dark initially, but denies dysuria, frequency, change in smell. She was seen by her PCP 2 days ago in [facility] and UA was grossly positive for infection, culture unknown and she was started on ciprofloxacin for infection which she reports taking as prescribed in addition to oxycodone for pain. Her creatinine however came back at 2.0 today therefore recommended she came to the emergency department for further evaluation. She does report since the onset of the pain taking 800 mg ibuprofen 4 times a day. She denies any epigastric pain, hematuria. The left-sided back pain has gradually got worse since onset, worse severity 12/30. No fevers or chills. With regards to the back pain she denies any urine incontinence/retention, change in bowel movements, perianal numbness, leg weakness or numbness. Allergies Allergy/AdvReac Type Severity Reaction Status Date / Time STEROIDS Allergy Unknown "I'M JUST Uncoded 01/05/20 12:59 OUT OF MY MIND AND HAVE SEIZURE-LIKE ACTIVITY" Home Medications Home Medications Medication Instructions Recorded Confirmed Type [id number]-[id number] 1 tab PO QAM 04/18/19 01/05/20 History oxybutynin chloride 5 mg 5 mg PO QAM PRN tab 04/18/19 01/05/20 History tablet,extended release 24 hr cholecalciferol (vitamin D3) 125 5,000 units PO QAM tab 04/25/19 01/05/20 History mcg (5,000 unit) tablet clonazepam 1 mg tablet 2 mg PO HS tab 04/25/19 01/05/20 History escitalopram oxalate 20 mg tablet 30 mg PO QAM tab 04/25/19 01/05/20 History furosemide 40 mg tablet 40 mg PO QAM tab 04/25/19 01/05/20 History melatonin 10 mg capsule 10 mg PO HS cap 04/25/19 01/05/20 History simvastatin 20 mg tablet 20 mg PO QAM tab 04/25/19 01/05/20 History aspirin 81 mg PO QAM 01/05/20 01/05/20 History cranberry 1,000 mg PO QAM 01/05/20 01/05/20 History ibuprofen 600 mg PO Q6H PRN 01/05/20 01/05/20 History nebivolol [Bystolic] 10 mg PO QAM 01/05/20 01/05/20 History oxycodone 5 mg PO Q6H PRN 01/05/20 01/05/20 History Past Med/Surg History Medical History Multiple sclerosis Urinary incontinence Social History Smoking Status: Current every day smoker Tobacco Type: Cigarettes Second Hand Exposure: Yes; Do You Dip or Chew Tobacco: No; Tobacco Cessation Education Requested by Patient: No Hx Alcohol Use: No Hx Substance Use: No Preferred Language: Maltese Beliefs That Will Affect Care: None Current Living Situation: Spouse Other Information That Helps Us Care for You: No Feels Safe at Home: Yes Safety Concerns: Feels Safe At This Time Assistive Devices: None Review of Systems Review of Systems: All systems reviewed & are unremarkable except as noted in HPI & below Physical Exam Constitutional: well developed; + not well nourished and no acute distress Eyes: + anicteric sclerae; normal pupil size ENMT: external ear and nose normal, oropharynx normal Neck: normal visual inspection and trachea midline Respiratory: normal respiratory effort, lungs clear to auscultation Cardiovascular: RRR, no murmur, no edema Gastrointestinal (Abdomen): normal bowel sounds, soft, nontender, no hepatosplenomegaly Musculoskeletal: Spine: + paraspinal tenderness (Left-sided generalized lumbar region) Skin: no rashes, warm and dry Neurologic: moves all extremities and awake; no focal motor deficits and not confused Psychiatric: Orientation: alert and oriented x 3 Affect: + anxious affect Genitourinary: + CVA tenderness (Left) Results & Data Results & Data ([facility]) Vital Signs (Past 12 Hours) Vital Signs Temp Pulse Resp BP Pulse Ox 01/05/20 13:00 63 21 119/66 96 01/05/20 12:31 60 19 140/55 L 95 01/05/20 11:37 36.9 C 70 20 145/62 H 95 Diagnostic Findings ABDOMEN AND PELVIS CT WITHOUT CONTRAST IMPRESSION: 1. Possible punctate stone within the upper pole of the left kidney. No ureteral stones. No hydronephrosis. 2. A few borderline-enlarged left para-aortic lymph nodes. 3. No definite bowel wall thickening or obstruction. 4. Colonic diverticulosis. No evidence for acute diverticulitis. 5. A 7 mm subpleural nodule within the right lower lobe. Please refer to the chart below for recommended follow-up. 6. Prior cholecystectomy, hysterectomy, and appendectomy. 7. Postoperative changes within the spine. ECG Indication: abdominal pain Rate (beats per minute): 62 Rhythm: normal sinus Findings: + 1st degree AV block Comparison ECG Date: no prior available Code Status & VTE Plan Code Status Full VTE Prophylaxis Plan VTE Prophylaxis will be ordered: No PG Care Time/CCT Total # of Minutes Spent Total Time Spent with Patient: Total time spent is greater than 50% in coordination of care (as documented) at patient's floor/unit and/or counseling patient: Coding Level of Care Code 75635 Initial Inpt Care Lvl 3 Diagnoses Acute pyelonephritis N10 Acute kidney injury N17.9 Left flank pain R10.9 Vitamin D deficiency E55.9 Hypertension I10 Urinary incontinence R32 Depression F32.9
[2020-01-05] MEDS ORDERED: oxyCODONE HCL IR 5 MG TAB (IMMEDIATE RELEASE) PO STA (15:33)
[2020-01-05] MEDS ORDERED: SODIUM CHLORIDE 0.9% 1000ML 1,000 ML IV ONE (15:50)
[2020-01-05] MEDS ORDERED: GLUCAGON FOR INJ 1 MG VIAL SQ PRN (17:38)
[2020-01-05] MEDS ORDERED: ACETAMINOPHEN 325 MG TAB PO PRN (17:38)
[2020-01-05] MEDS ORDERED: ONDANSETRON INJ 2 MG/ML 2 ML VIAL IV PRN (17:38)
[2020-01-05] MEDS ORDERED: GLUCOSE 10 TABS/TUBE PO PRN (17:38)
[2020-01-05] MEDS ORDERED: OXYBUTYNIN CHLORIDE XL 5 MG TABCR PO PRN (17:38)
[2020-01-05] MEDS ORDERED: CARBOHYDRATES FOR HYPOGLYCEMIA PO PRN (17:38)
[2020-01-05] MEDS ORDERED: GLUCOSE 40% GEL 15 GM TUBE PO PRN (17:38)
[2020-01-05] MEDS ORDERED: DEXTROSE 50% 50 ML SYRINGE IV PRN (17:38)
[2020-01-05] MEDS: HYDROmorphone INJ 0.5 MG/0.5 ML SYR IV PRN ×3 (17:47→22:45)
[2020-01-05] MEDS: INSULIN ASPART 100 UNITS/ML 3 ML PEN SC SCH ×2 (17:55→20:52)
[2020-01-05] MEDS ORDERED: INFLUENZA VIRUS QUAD VACCINE 0.5 ML SYR IM ONE (18:28)
[2020-01-05] MEDS ORDERED: PNEUMOCOCCAL ADMINISTRATION CHARGE ONE (18:28)
[2020-01-05] MEDS ORDERED: PNEUMOCOCCAL POLYSACCHARIDES 25 MCG/0.5 ML VIAL/SYR IM ONE (18:28)
[2020-01-05] MEDS ORDERED: INFLUENZA ADMINISTRATION CHARGE ONE (18:28)
[2020-01-05] MEDS: POTASSIUM CHLORIDE 40 MEQ in SODIUM CHLORIDE 0.9% 1000ML 1,000 ML IV SCH (18:35)
[2020-01-05] MEDS: LIDOCAINE 5% 1 PATCH TD SCH (18:35)
[2020-01-05] MEDS: MELATONIN 3 MG TAB PO SCH (20:56)
[2020-01-05] MEDS: clonazePAM 1 MG TAB PO SCH (20:56)
[2020-01-06] MEDS: POTASSIUM CHLORIDE 40 MEQ in SODIUM CHLORIDE 0.9% 1000ML 1,000 ML IV SCH ×4 (02:22→21:38)
[2020-01-06 06:10] LABS: Basophils # (auto) 0.03 K/uL (0-0.2); Basophils % (auto) 0.4 %; Eosinophils # (auto) 0.27 K/uL (0-0.5); Eosinophils % (auto) 3.3 %; Hematocrit (blood only) 34.8 % (37-47); Hemoglobin 11.4 g/dL (12.0-16.0); Immature Granulocytes # (auto) 0.02 K/uL (0.00-0.02); Immature Granulocytes % (auto) 0.2 %; Lymphocytes % (auto) 29.5 %; Mean Corpuscular Hemoglobin 31.6 pg (25-34); Mean Corpuscular Hgb Conc 32.8 g/dL (32-36); Mean Corpuscular Volume 96.4 fL (80-100); Mean Platelet Volume 9.6 fL (7.4-10.4); Monocytes # (auto) 0.52 K/uL (0.11-0.59); Monocytes % (auto) 6.4 %; Neutrophils % (auto) 60.2 %; Platelet Count 247 K/uL (130-400); RDW Coefficient of Variation 14.8 % (11.5-14.5); RDW Standard Deviation 51.6 fL (36.4-46.3); Red Blood Count 3.61 M/uL (4.2-5.4); White Blood Count 8.14 K/uL (4.8-10.8)
--- NOTE | 2020-01-06 06:13 | Electrocardiogram Report ---
Test Reason : Blood Pressure : / mmHG Vent. Rate : 062 BPM Atrial Rate : 062 BPM P-R Int : 218 ms QRS Dur : 082 ms QT Int : 436 ms P-R-T Axes : 039 003 058 degrees QTc Int : 442 ms Sinus rhythm with 1st degree A-V block Low voltage QRS Anterior infarct Abnormal ECG No previous ECGs available Confirmed by Wyatt Young ([id number]) on 01/06/2020 6:13:00 AM Referred By: Quinton Flores Confirmed By:Wyatt Young
[2020-01-06 06:40] LABS: BUN Creatinine Ratio 14.2 (10-20); Calcium 8.7 mg/dl (8.5-10.1); Creatinine Clr Calc Pharmacy 28.5 ml/min; Est GFR (African American) 37.5; Est GFR (Non-African American) 32.3; Potassium 3.5 mmol/L (3.5-5.1)
[2020-01-06] MEDS: HYDROmorphone INJ 0.5 MG/0.5 ML SYR IV PRN (07:36)
[2020-01-06] MEDS: LIDOCAINE 5% 1 PATCH TD SCH (07:39)
[2020-01-06] MEDS: SIMVASTATIN 20 MG TAB PO SCH (08:08)
[2020-01-06] MEDS: CEROVITE ADV FORMULA TAB PO SCH (08:08)
[2020-01-06] MEDS: METOPROLOL TARTRATE 25 MG TAB PO SCH ×2 (08:08→20:36)
[2020-01-06] MEDS: ASPIRIN 81 MG ECTAB PO SCH (08:08)
[2020-01-06] MEDS: CHOLECALCIFEROL 1,000 UNITS 25 MCG TAB PO SCH (08:09)
[2020-01-06] MEDS: ESCITALOPRAM OXALATE 10 MG TAB PO SCH (08:09)
[2020-01-06] MEDS: INSULIN ASPART 100 UNITS/ML 3 ML PEN SC SCH ×4 (08:29→21:20)
[2020-01-06] MEDS ORDERED: PNEUMOCOCCAL Polysaccharide Vaccine 25mcg/0.5mL vial/Syr IM ONE (09:00)
[2020-01-06] MEDS: cefTRIAXone SODIUM 1,000 MG in DEXTROSE 5% 50 ML IV SCH (12:47)
--- NOTE | 2020-01-06 13:53 | Hospitalist Progress Note ---
Date of Service January 06, 2020 Assessment & Plan (1) Acute pyelonephritis: Questionable diagnosis in my mind. CVA tenderness seems more MSK to me. CT a/p on 01/04 showed possible punctate stone within the upper pole of the left kidney. No perinephric stranding or abscess noted. - Continue ceftriaxone - Follow-up urine and blood cultures taken here on 01/04 - Negative so far. (2) Acute kidney injury: In setting of dehydration & excessive ibuprofen use. Baseline Cr ~1.1, eGFR ~50. CKD, Stage III at baseline. Cr was 1.9 on admission. - Discontinue Lasix and ibuprofen. - Continue IV fluids - Cr was 1.6 on 01/05. - Repeat BMP in a.m. (3) Left flank pain: Suspect musculoskeletal back pain. Left paraspinal muscle spasm on exam. - Lidocaine patch - Will give standing Tylenol x 1 day. - Oxycodone 5 mg every 4 hourly as needed - Add baclofen PRN today. (4) Hypertension: BP is 145/80 at present. - Continue nebivolol 10 mg p.o. every morning, hold Lasix. (5) Vitamin D deficiency: - Continue cholecalciferol (6) Urinary incontinence: - Continue oxybutynin ER 5 mg p.o. nightly (7) Depression: - Continue Lexapro 30 mg p.o. every morning (8) DVT prophylaxis: Heparin 5000 units SQ Q12h Admission and Anticipated Discharge Date Admission Date: January 05, 2020 Subjective Still with left back pain. It appears more MSK as it is more painful with palpation of the rib rather than actual CVA tenderness. Reports no fevers/chills, chest pain, shortness of breath, abdominal pain, nausea, or vomiting. Physical Exam Constitutional: WD/WN, vitals as above Eyes: EOM intact bilaterally; no conjunctival abnormality ENMT: external ear and nose normal, oropharynx normal Neck: trachea midline, no thyromegaly normal visual inspection Respiratory: normal respiratory effort, lungs clear to auscultation no respiratory distress Cardiovascular: RRR, no murmur, no edema Gastrointestinal (Abdomen): Inspection/Auscultation: abdomen normal to inspection; abdomen not distended Musculoskeletal: no cyanosis or clubbing, extremities motor strength 5/5 Head/Neck/Chest: normocephalic and head atraumatic Spine: + paraspinal tenderness (Along lateral left ribs) Skin: no rashes, warm and dry Neurologic: moves all extremities and awake Psychiatric: Orientation: alert, oriented to person and cooperative Results & Data Results & Data ([facility]) Vital Signs (Past 12 Hours) Vital Signs Temp Pulse Resp BP Pulse Ox 01/06/20 11:36 36.8 C 67 16 146/80 H 91 01/06/20 07:28 36.8 C 70 16 164/74 H 90 01/06/20 03:52 36.4 C L 63 19 136/71 90 PG Care Time/CCT Total # of Minutes Spent Total Time Spent with Patient: Total time spent is greater than 50% in coordination of care (as documented) at patient's floor/unit and/or counseling patient: Coding Level of Care Code 61237 Subseq Hosp Care Lvl 3 Diagnoses Acute pyelonephritis N10 Acute kidney injury N17.9 Left flank pain R10.9 Hypertension I10 Vitamin D deficiency E55.9 Urinary incontinence R32 Depression F32.9 DVT prophylaxis Z29.9
[2020-01-06] MEDS: ACETAMINOPHEN 500 MG TAB PO SCH ×2 (14:41→20:36)
[2020-01-06] MEDS: oxyCODONE HCL IR 5 MG TAB (IMMEDIATE RELEASE) PO PRN ×2 (14:41→21:41)
[2020-01-06] MEDS ORDERED: hydrALAZINE HCL 20 MG/ML VIAL IV PRN (16:16)
[2020-01-06] MEDS: MoRPHine SULFATE 2 MG/ML CARP IV PRN (16:24)
[2020-01-06] MEDS: POLYETHYLENE (MIRALAX) 17 GM PACK PO PRN (16:28)
[2020-01-06] MEDS ORDERED: MoRPHine SULFATE 4 MG/ML 1 ML CARP\\VIAL IV STA (19:20)
[2020-01-06] MEDS ORDERED: HYDROmorphone INJ 0.5 MG/0.5 ML SYR IV STA (20:12)
[2020-01-06] MEDS ORDERED: HYDROmorphone INJ 0.5 MG/0.5 ML SYR ONE (20:31)
[2020-01-06] MEDS: MELATONIN 3 MG TAB PO SCH (20:36)
[2020-01-06] MEDS: clonazePAM 1 MG TAB PO SCH (20:36)
[2020-01-06] MEDS: HEPARIN SOD 5,000 UNIT/0.5 ML VIAL SQ SCH (20:40)
[2020-01-07] MEDS: MoRPHine SULFATE 2 MG/ML CARP IV PRN ×5 (03:51→20:30)
[2020-01-07] MEDS: POTASSIUM CHLORIDE 40 MEQ in SODIUM CHLORIDE 0.9% 1000ML 1,000 ML IV SCH ×4 (04:00→18:39)
[2020-01-07] MEDS: ACETAMINOPHEN 500 MG TAB PO SCH ×4 (04:27→20:22)
[2020-01-07] MEDS: oxyCODONE HCL IR 5 MG TAB (IMMEDIATE RELEASE) PO PRN ×3 (06:00→22:27)
[2020-01-07 08:17] LABS: Hematocrit (blood only) 38.4 % (37-47); Hemoglobin 12.6 g/dL (12.0-16.0); Mean Corpuscular Hemoglobin 31.8 pg (25-34); Mean Corpuscular Hgb Conc 32.8 g/dL (32-36); Mean Platelet Volume 9.6 fL (7.4-10.4); Platelet Count 254 K/uL (130-400); RDW Coefficient of Variation 14.9 % (11.5-14.5); RDW Standard Deviation 52.6 fL (36.4-46.3); Red Blood Count 3.96 M/uL (4.2-5.4); White Blood Count 9.43 K/uL (4.8-10.8)
[2020-01-07] MEDS: METOPROLOL TARTRATE 25 MG TAB PO SCH ×2 (08:35→20:21)
[2020-01-07] MEDS: CEROVITE ADV FORMULA TAB PO SCH (08:35)
[2020-01-07] MEDS: SIMVASTATIN 20 MG TAB PO SCH (08:36)
[2020-01-07] MEDS: CHOLECALCIFEROL 1,000 UNITS 25 MCG TAB PO SCH (08:36)
[2020-01-07] MEDS: ASPIRIN 81 MG ECTAB PO SCH (08:36)
[2020-01-07] MEDS: ESCITALOPRAM OXALATE 10 MG TAB PO SCH (08:37)
[2020-01-07] MEDS: LIDOCAINE 5% 1 PATCH TD SCH (08:38)
[2020-01-07] MEDS: INSULIN ASPART 100 UNITS/ML 3 ML PEN SC SCH ×4 (08:40→20:21)
[2020-01-07] MEDS: HEPARIN SOD 5,000 UNIT/0.5 ML VIAL SQ SCH ×2 (08:41→20:21)
[2020-01-07] MEDS: POLYETHYLENE (MIRALAX) 17 GM PACK PO PRN (08:47)
[2020-01-07 08:58] LABS: BUN Creatinine Ratio 13.7 (10-20); Creatinine Clr Calc Pharmacy 40.4 ml/min; Est GFR (African American) 57.2; Est GFR (Non-African American) 49.4; Potassium 4.5 mmol/L (3.5-5.1)
--- NOTE | 2020-01-07 09:54 | XRay Report ---
XR KUB/Abdomen 1 view CLINICAL HISTORY: Left flank pain COMPARISON STUDY: CT scan dated 01/05/2020 FINDINGS: Postsurgical changes are present within the lumbar spine with thoracoabdominal spinal rods. There are surgical clips in the right upper quadrant consistent with a prior cholecystectomy. There is no pathologic bowel dilatation. No urinary tract calculi are visualized. IMPRESSION: 1. Nonobstructive bowel gas pattern 2. No urinary tract calculi identified. ACT 112: Negative or not required by law. Electronically signed by: Shaun Cope M.D. 01/07/2020 9:52 AM
--- NOTE | 2020-01-07 09:56 | XRay Report ---
XR ribs LT min 3V w CXR1V CLINICAL HISTORY: Left rib pain COMPARISON STUDY: Chest x-ray dated 11/09/2012 FINDINGS: The erect chest reveals elevation of interstitium with small bilateral pleural effusions co nsistent with mild congestive failure/fluid overload. There is no pneumothorax. No left-sided rib fra ctures are visualized. IMPRESSION: 1. No evidence of pneumothorax. No left-sided rib fractures identified 2. Radiographic evidence of mild congestive failure/fluid overload with small bilateral pleural effus ions ACT 112: Negative or not required by law. Electronically signed by: Shaun Cope M.D. 01/07/2020 9:54 AM
[2020-01-07] MEDS: cefTRIAXone SODIUM 1,000 MG in DEXTROSE 5% 50 ML IV SCH (12:21)
--- NOTE | 2020-01-07 13:19 | Ultrasound Report ---
EXAMINATION: RENAL ULTRASOUND CLINICAL HISTORY: Left flank pain COMPARISON STUDY: CT scan dated 01/05/2020 FINDINGS: The right kidney measures 10.6 cm. The left kidney measures 9.8 cm. There is no evidence o f hydronephrosis. There is an 11 mm lower pole left renal cyst No bladder abnormalities are visualized. Bilateral ureteral jets were visualized. IMPRESSION : 1. 11 mm lower pole left renal cyst. 2. Otherwise unremarkable renal ultrasound. No evidence of hydronephrosis. ACT 112: Negative or not required by law. Electronically signed by: Shaun Cope M.D. 01/07/2020 1:18 PM
--- NOTE | 2020-01-07 15:45 | Hospitalist Progress Note ---
Date of Service January 07, 2020 Assessment & Plan (1) Left flank pain: Suspect musculoskeletal back pain. Left paraspinal muscle spasm on exam. As listed in the Subjective, the patient is very upset and even angry about her pain. She feels we are doing nothing for it. As above, I did try to explain our multi-modal approach to her pain control including IV narcotics. I also explained all of the testing we have done over the last few days (including today) and talked about the results in detail. She still felt like we were not treating her pain well. She feels very strongly this is kidney stone pain as she reports it is very similar to a prior kidney stone (which she had never mentioned to me previously). While I think it is unlikely, I did consult urology in case there is a possibility of a radiolucent kidney stone causing her pain. - Continue standing Tylenol, Lidocaine patch, oxycodone, and IV morphine - Continue baclofen PRN - Consulted urology. (2) Acute pyelonephritis: Questionable diagnosis in my mind. CVA tenderness seems more MSK to me. CT a/p on 01/04 showed possible punctate stone within the upper pole of the left kidney. No perinephric stranding or abscess noted. - Urine culture is mixed annabel. Blood cultures from 01/04 are negative so far. - Continue ceftriaxone x 3 days total as I feelt this at most represents a typical UTI. (3) Acute kidney injury: In setting of dehydration & excessive ibuprofen use. Baseline Cr ~1.1, eGFR ~50. CKD, Stage III at baseline. Cr was 1.9 on admission. - Discontinued Lasix and ibuprofen. - Cr was 1.1 on 01/06. Now back to baseline. - Slow IV fluids (4) Hypertension: BP is 160/70 at present. - Continue metoprolol - Hold Lasix (5) Vitamin D deficiency: - Continue cholecalciferol (6) Urinary incontinence: - Continue oxybutynin ER 5 mg PO daily PRN (7) Depression: - Continue Lexapro 30 mg p.o. every morning (8) DVT prophylaxis: Heparin 5000 units SQ Q12h Admission and Anticipated Discharge Date Admission Date: January 05, 2020 Subjective She is very upset today. She feels that she is just being left lying in pain and does not understand why we have done nothing for her kidney stone. I tried to discuss with her that her CT scan is very equivocal for a stone, and the stone that is read is not in the ureter. I explained that her pain seems very complex in that it sometimes is along the left rib and therefore it is not entirely clear what is causing her pain. I also discussed with her what we are doing for her pain, including standing acetaminophen for inflammation, topical lidocaine patches, heat therapy, and tiered narcotic pain medications. NSAIDs are not an option due to her kidney function. She said she had a prior kidney stone that felt exactly like this pain, and they removed the kidney stone and immediately felt better. I told her I was not sure the urology team would put in a stent or be able to remove this stone, but that I would consult them since she felt this was the root of her problem. Physical Exam 2 Constitutional: WD/WN, vitals as above Eyes: EOM intact bilaterally; no conjunctival abnormality ENMT: external ear and nose normal, oropharynx normal Neck: trachea midline, no thyromegaly normal visual inspection Respiratory: normal respiratory effort, lungs clear to auscultation no respiratory distress Cardiovascular: RRR, no murmur, no edema Gastrointestinal (Abdomen): Inspection/Auscultation: abdomen normal to inspection; abdomen not distended Musculoskeletal: no cyanosis or clubbing, extremities motor strength 5/5 Head/Neck/Chest: normocephalic and head atraumatic Spine: + paraspinal tenderness (Along lateral left ribs) Skin: no rashes, warm and dry Neurologic: moves all extremities and awake Psychiatric: Orientation: alert, oriented to person and cooperative Results & Data Results & Data ([facility]) Vital Signs (Past 12 Hours) Vital Signs Temp Pulse Resp BP Pulse Ox 01/07/20 15:34 36.7 C 68 16 159/71 H 90 01/07/20 07:43 36.5 C 65 16 186/69 H 91 01/07/20 04:00 36.5 C 67 22 160/63 H 90 PG Care Time/CCT Total # of Minutes Spent Total Time Spent with Patient: Total time spent is greater than 50% in coordination of care (as documented) at patient's floor/unit and/or counseling patient: Coding Level of Care Code 06186 Subseq Hosp Care Lvl 3 Diagnoses Left flank pain R10.9 Acute pyelonephritis N10 Acute kidney injury N17.9 Hypertension I10 Vitamin D deficiency E55.9 Urinary incontinence R32 Depression F32.9 DVT prophylaxis Z29.9
[2020-01-07] MEDS: MELATONIN 3 MG TAB PO SCH (20:21)
[2020-01-07] MEDS: clonazePAM 1 MG TAB PO SCH (22:27)
[2020-01-08] MEDS: POTASSIUM CHLORIDE 40 MEQ in SODIUM CHLORIDE 0.9% 1000ML 1,000 ML IV SCH ×2 (01:30→08:32)
[2020-01-08] MEDS: ACETAMINOPHEN 500 MG TAB PO SCH ×4 (03:19→20:38)
[2020-01-08] MEDS: MoRPHine SULFATE 2 MG/ML CARP IV PRN (05:16)
[2020-01-08] MEDS ORDERED: diphenhydrAMINE Capsule 25 MG CAP PO ONE (05:26)
[2020-01-08] MEDS ORDERED: diphenhydrAMINE Capsule 25 MG CAP ONE (05:29)
--- NOTE | 2020-01-08 05:31 | Communication Note ---
Date of Service: January 08, 2020 Notified about 5:30AM that pt had redness and itching at IV site after receiving IV morphine. No evidence of throat swelling. Ordered a one time dose of 50mg of benadryl to help as she was uncomfortable. Noted allergy to steroids only. Resident Activity Tracking Resident Involvement: Load Planner Coverage Note Care Provided: Adult Hospital Medicine
[2020-01-08 05:50] LABS: Hematocrit (blood only) 35.5 % (37-47); Hemoglobin 11.8 g/dL (12.0-16.0); Mean Corpuscular Hemoglobin 31.8 pg (25-34); Mean Corpuscular Hgb Conc 33.2 g/dL (32-36); Mean Corpuscular Volume 95.7 fL (80-100); Mean Platelet Volume 9.6 fL (7.4-10.4); Platelet Count 243 K/uL (130-400); RDW Standard Deviation 51.5 fL (36.4-46.3); Red Blood Count 3.71 M/uL (4.2-5.4); White Blood Count 8.48 K/uL (4.8-10.8)
[2020-01-08 06:13] LABS: BUN Creatinine Ratio 12.6 (10-20); Calcium 8.6 mg/dl (8.5-10.1); Creatinine Clr Calc Pharmacy 53.9 ml/min; Est GFR (Non-African American) 69.9; Potassium 4.4 mmol/L (3.5-5.1)
[2020-01-08] MEDS: CHOLECALCIFEROL 1,000 UNITS 25 MCG TAB PO SCH (08:27)
[2020-01-08] MEDS: ESCITALOPRAM OXALATE 10 MG TAB PO SCH (08:28)
[2020-01-08] MEDS: ASPIRIN 81 MG ECTAB PO SCH (08:28)
[2020-01-08] MEDS: SIMVASTATIN 20 MG TAB PO SCH (08:28)
[2020-01-08] MEDS: CEROVITE ADV FORMULA TAB PO SCH (08:29)
[2020-01-08] MEDS: METOPROLOL TARTRATE 25 MG TAB PO SCH ×2 (08:29→20:38)
[2020-01-08] MEDS: HEPARIN SOD 5,000 UNIT/0.5 ML VIAL SQ SCH ×2 (08:29→20:39)
[2020-01-08] MEDS: INSULIN ASPART 100 UNITS/ML 3 ML PEN SC SCH ×4 (08:30→20:39)
[2020-01-08] MEDS: LIDOCAINE 5% 1 PATCH TD SCH (09:30)
[2020-01-08] MEDS ORDERED: FUROSEMIDE 40 MG in SYRINGE 0 ML IV ONE (12:45)
--- NOTE | 2020-01-08 13:24 | XRay Report ---
SINGLE VIEW CHEST CLINICAL HISTORY: Dyspnea. Hypoxia. FINDINGS: An AP, portable, upright chest radiograph is compared to study dated 01/07/2020. The examin ation is degraded by portable technique and patient rotation. The heart is enlarged noting atheroscle rotic calcification of the thoracic and. There is pulmonary vascular congestion. Bilateral airspace o pacities are noted. Small pleural effusions are suspected. No pneumothorax is seen. The skeletal stru ctures are osteopenic. The bony thorax is grossly intact. Postoperative change and spinal rods is not ed to the lumbar junction. Surgical anchors are seen in the left humeral head. IMPRESSION: 1. Cardiomegaly with evidence of congestive failure. 2. There are bilateral hazy airspace opacities. This likely represents interstitial edema. Correlate clinically for evidence of a superimposed infectious/inflammatory pneumonitis. Radiographic follow-up to resolution is limited. 3. Small pleural effusions. ACT 112: Negative or not required by law. Electronically signed by: Elvis Terrell M.D. 01/08/2020 1:23 PM
[2020-01-08] MEDS: cefTRIAXone SODIUM 1,000 MG in DEXTROSE 5% 50 ML IV SCH (14:34)
--- NOTE | 2020-01-08 14:55 | Hospitalist Progress Note ---
Date of Service January 08, 2020 Assessment & Plan (1) Volume overload: Iatrogenic volume overload. The patient is on Lasix at baseline. This was held for KING and concern for possible kidney stone, and she has been on IV fluids since admission. Would NOT say this is CHF given it is iatrogenic from IV fluids. - Patient became more short of breath on 01/07. - CXR shows pulmonary edema. No signs of pneumonia (fever, leukocytosis, tachycardia). Has been on ceftriaxone at any rate for the possible UTI. - Stopped IV fluids; gave Lasix 40 mg IV x 1. Will supervisor vendor quality response and re-dose accordingly. (2) Left flank pain: Suspect musculoskeletal back pain. Left paraspinal muscle spasm on exam. On 01/06, the patient was very upset and even angry about her pain. Despite discussion on multi-modal approach, she still felt like we were not treating her pain well. She reported this felt very much like a prior kidney stone. Testing only showed a possible punctate stone, but I consulted urology anyway in case of a radiolucent stone. Overnight, had a reaction to IV morphine. Today (01/07), pain has resolved. - Continue: * Standing acetaminophen * Lidocaine patch * Heat therapy * Oxycodone PRN * Baclofen PRN - Cancel urology consult (3) Acute pyelonephritis: Questionable diagnosis in my mind. CVA tenderness seems more MSK to me. CT a/p on 01/04 showed possible punctate stone within the upper pole of the left kidney. No perinephric stranding or abscess noted. - Urine culture is mixed annabel. Blood cultures from 01/04 are negative so far. - Continue ceftriaxone x 3 days total as I feelt this at most represents a typical UTI. (4) Acute kidney injury: In setting of dehydration & excessive ibuprofen use. Baseline Cr ~1.1, eGFR ~50. CKD, Stage III at baseline. Cr was 1.9 on admission. - Discontinued Lasix and ibuprofen initially. - Cr was 0.8 on 01/07; at baseline. - Stop IV fluids for hypervolemia. (5) Hypertension: BP is 150/70 at present. - Continue metoprolol - Lasix 40 mg IV x 1 given on 01/07 (6) Vitamin D deficiency: - Continue cholecalciferol (7) Urinary incontinence: - Continue oxybutynin ER 5 mg PO daily PRN (8) Depression: - Continue Lexapro 30 mg p.o. every morning (9) DVT prophylaxis: Heparin 5000 units SQ Q12h Admission and Anticipated Discharge Date Admission Date: January 05, 2020 Subjective Patient only reports that she is short of breath today. She denies any flank pain at present. Reports no fevers/chills, chest pain, abdominal pain, nausea, or vomiting. Physical Exam Constitutional: WD/WN, vitals as above + acute distress Eyes: EOM intact bilaterally; no conjunctival abnormality ENMT: external ear and nose normal, oropharynx normal Neck: trachea midline, no thyromegaly normal visual inspection Respiratory: + respiratory distress and + tachypneic Auscultation: + crackles Cardiovascular: RRR, no murmur, no edema Gastrointestinal (Abdomen): Inspection/Auscultation: abdomen normal to inspection; abdomen not distended Musculoskeletal: no cyanosis or clubbing, extremities motor strength 5/5 Head/Neck/Chest: normocephalic Spine: no paraspinal tenderness (Along lateral left ribs) Skin: no rashes, warm and dry Neurologic: moves all extremities and awake Psychiatric: Orientation: alert, oriented to person and cooperative Results & Data Results & Data ([facility]) Vital Signs (Past 12 Hours) Vital Signs Temp Pulse Resp BP Pulse Ox 01/08/20 06:31 36.5 C 64 18 150/71 H 93 PG Care Time/CCT Total # of Minutes Spent Total Time Spent with Patient: Total time spent is greater than 50% in coordination of care (as documented) at patient's floor/unit and/or counseling patient: Coding Level of Care Code 20964 Subseq Hosp Care Lvl 3 Diagnoses Volume overload E87.70 Left flank pain R10.9 Acute pyelonephritis N10 Acute kidney injury N17.9 Hypertension I10 Vitamin D deficiency E55.9 Urinary incontinence R32 Depression F32.9 DVT prophylaxis Z29.9
[2020-01-08] MEDS ORDERED: hydrALAZINE HCL 20 MG/ML VIAL IV ONE (17:20)
[2020-01-08] MEDS: MELATONIN 3 MG TAB PO SCH (20:38)
[2020-01-08] MEDS: clonazePAM 1 MG TAB PO SCH (20:38)
[2020-01-09] MEDS: ACETAMINOPHEN 500 MG TAB PO SCH ×4 (04:16→20:29)
[2020-01-09 05:48] LABS: Hematocrit (blood only) 37.4 % (37-47); Hemoglobin 12.6 g/dL (12.0-16.0); Mean Corpuscular Hemoglobin 31.7 pg (25-34); Mean Corpuscular Hgb Conc 33.7 g/dL (32-36); Mean Platelet Volume 9.6 fL (7.4-10.4); Platelet Count 280 K/uL (130-400); RDW Coefficient of Variation 14.7 % (11.5-14.5); RDW Standard Deviation 49.9 fL (36.4-46.3); Red Blood Count 3.98 M/uL (4.2-5.4); White Blood Count 7.43 K/uL (4.8-10.8)
[2020-01-09 06:14] LABS: BUN Creatinine Ratio 17.8 (10-20); Calcium 8.9 mg/dl (8.5-10.1); Creatinine Clr Calc Pharmacy 48.8 ml/min; Est GFR (African American) 71.7; Est GFR (Non-African American) 61.8; Magnesium 2.3 mg/dl (1.8-2.4); Potassium 3.4 mmol/L (3.5-5.1)
--- NOTE | 2020-01-09 09:00 | Electrocardiogram Report ---
Test Reason : Blood Pressure : / mmHG Vent. 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
[2020-01-09] MEDS: CHOLECALCIFEROL 1,000 UNITS 25 MCG TAB PO SCH (09:06)
[2020-01-09] MEDS: SIMVASTATIN 20 MG TAB PO SCH (09:06)
[2020-01-09] MEDS: ASPIRIN 81 MG ECTAB PO SCH (09:06)
[2020-01-09] MEDS: METOPROLOL TARTRATE 25 MG TAB PO SCH ×2 (09:07→20:29)
[2020-01-09] MEDS: CEROVITE ADV FORMULA TAB PO SCH (09:07)
[2020-01-09] MEDS: ESCITALOPRAM OXALATE 10 MG TAB PO SCH (09:08)
[2020-01-09] MEDS: HEPARIN SOD 5,000 UNIT/0.5 ML VIAL SQ SCH ×2 (09:09→20:30)
[2020-01-09] MEDS: INSULIN ASPART 100 UNITS/ML 3 ML PEN SC SCH ×4 (09:09→20:31)
[2020-01-09] MEDS: oxyCODONE HCL IR 5 MG TAB (IMMEDIATE RELEASE) PO PRN (09:11)
[2020-01-09] MEDS: LIDOCAINE 5% 1 PATCH TD SCH (09:12)
[2020-01-09] MEDS: BACLOFEN 10 MG TAB PO PRN (12:37)
[2020-01-09] MEDS ORDERED: POTASSIUM CHLORIDE CRTAB 20 MEQ TABCR PO STA (15:50)
[2020-01-09] MEDS ORDERED: FUROSEMIDE 40 MG in SYRINGE 0 ML IV ONE (16:00)
[2020-01-09] MEDS: clonazePAM 1 MG TAB PO SCH (20:29)
[2020-01-09] MEDS: POTASSIUM CHLORIDE CRTAB 20 MEQ TABCR PO SCH (20:29)
[2020-01-09] MEDS: MELATONIN 3 MG TAB PO SCH (20:29)
--- NOTE | 2020-01-09 22:29 | Hospitalist Progress Note ---
Date of Service January 09, 2020 Assessment & Plan (1) Volume overload: Iatrogenic volume overload. The patient is on Lasix at baseline. This was held for KING and concern for possible kidney stone, and she has been on IV fluids since admission. Would NOT say this is CHF given it is iatrogenic from IV fluids. - Patient became more short of breath on 01/07. - CXR shows pulmonary edema. No signs of pneumonia (fever, leukocytosis, tachycardia). Has been on ceftriaxone at any rate for the possible UTI. - Stopped IV fluids; gave Lasix 40 mg IV x 1 on 01/07, will repeat dose of lasix on 01/08. will monitor. (2) Left flank pain: Suspect musculoskeletal back pain. Left paraspinal muscle spasm on exam. On 01/06, the patient was very upset and even angry about her pain. Despite discussion on multi-modal approach, she still felt like we were not treating her pain well. She reported this felt very much like a prior kidney stone. Testing only showed a possible punctate stone, but I consulted urology anyway in case of a radiolucent stone. Overnight, had a reaction to IV morphine. On 01/07, pain has resolved. - Continue: * Standing acetaminophen * Lidocaine patch * Heat therapy * Oxycodone PRN * Baclofen PRN - Cancel urology consult (3) Acute pyelonephritis: Questionable diagnosis in my mind. CVA tenderness seems more MSK to me. CT a/p on 01/04 showed possible punctate stone within the upper pole of the left kidney. No perinephric stranding or abscess noted. - Urine culture is mixed annabel. Blood cultures from 01/04 are negative so far. - Continue ceftriaxone x 3 days total as I feelt this at most represents a typical UTI. (4) Acute kidney injury: In setting of dehydration & excessive ibuprofen use. Baseline Cr ~1.1, eGFR ~50. CKD, Stage III at baseline. Cr was 1.9 on admission. - Discontinued Lasix and ibuprofen initially. - Cr was 0.8 on 01/07; at baseline. - Stop IV fluids for hypervolemia. (5) Hypertension: BP is 150/70 at present. - Continue metoprolol - Lasix 40 mg IV x 1 given on 01/07 (6) Vitamin D deficiency: - Continue cholecalciferol (7) Urinary incontinence: - Continue oxybutynin ER 5 mg PO daily PRN (8) Depression: - Continue Lexapro 30 mg p.o. every morning (9) DVT prophylaxis: Heparin 5000 units SQ Q12h Admission and Anticipated Discharge Date Admission Date: January 05, 2020 Subjective 69 yo female reports feeling well. She has no new complaints. She is contiuing to require oxygen though at home she is not on oxygen. Review of Systems Review of Systems: All systems reviewed & are unremarkable except as noted in HPI & below Physical Exam Physical Exam: Constitutional: WD/WN, vitals as above + acute distress Eyes: EOM intact bilaterally; no conjunctival abnormality ENMT: external ear and nose normal, oropharynx normal Neck: trachea midline, no thyromegaly normal visual inspection Respiratory: + respiratory distress and + tachypneic Auscultation: + crackles Cardiovascular: RRR, no murmur, no edema Gastrointestinal (Abdomen): Inspection/Auscultation: abdomen normal to inspection; abdomen not distended Musculoskeletal: no cyanosis or clubbing, extremities motor strength 5/5 Head/Neck/Chest: normocephalic Spine: no paraspinal tenderness (Along lateral left ribs) Skin: no rashes, warm and dry Neurologic: moves all extremities and awake Psychiatric: Orientation: alert, oriented to person and cooperative Results & Data Results & Data ([facility]) Vital Signs (Past 12 Hours) Vital Signs Temp Pulse Resp BP Pulse Ox 01/09/20 16:01 36.5 C 62 20 118/57 L 94 PG Care Time/CCT Total # of Minutes Spent Total Time Spent with Patient: Total time spent is greater than 50% in coordination of care (as documented) at patient's floor/unit and/or counseling patient: Coding Level of Care Code 58638 Subseq Hosp Care Lvl 3 Diagnoses Volume overload E87.70 Left flank pain R10.9 Acute pyelonephritis N10 Acute kidney injury N17.9 Hypertension I10 Vitamin D deficiency E55.9 Urinary incontinence R32 Depression F32.9 DVT prophylaxis Z29.9 Time Spent (min) 35
[2020-01-10] MEDS: oxyCODONE HCL IR 5 MG TAB (IMMEDIATE RELEASE) PO PRN ×3 (00:09→12:38)
[2020-01-10] MEDS: ACETAMINOPHEN 500 MG TAB PO SCH ×3 (02:11→14:12)
[2020-01-10] MEDS: ESCITALOPRAM OXALATE 10 MG TAB PO SCH (09:11)
[2020-01-10] MEDS: CHOLECALCIFEROL 1,000 UNITS 25 MCG TAB PO SCH (09:11)
[2020-01-10] MEDS: HEPARIN SOD 5,000 UNIT/0.5 ML VIAL SQ SCH (09:11)
[2020-01-10] MEDS: METOPROLOL TARTRATE 25 MG TAB PO SCH (09:12)
[2020-01-10] MEDS: ASPIRIN 81 MG ECTAB PO SCH (09:12)
[2020-01-10] MEDS: POTASSIUM CHLORIDE CRTAB 20 MEQ TABCR PO SCH (09:12)
[2020-01-10] MEDS: CEROVITE ADV FORMULA TAB PO SCH (09:12)
[2020-01-10] MEDS: INSULIN ASPART 100 UNITS/ML 3 ML PEN SC SCH ×2 (09:13→13:07)
[2020-01-10] MEDS: SIMVASTATIN 20 MG TAB PO SCH (09:13)
[2020-01-10] MEDS: LIDOCAINE 5% 1 PATCH TD SCH (09:20)
[2020-01-10 10:01] LABS: Hematocrit (blood only) 37.5 % (37-47); Hemoglobin 12.3 g/dL (12.0-16.0); Mean Corpuscular Hemoglobin 31.4 pg (25-34); Mean Corpuscular Hgb Conc 32.8 g/dL (32-36); Mean Corpuscular Volume 95.7 fL (80-100); Mean Platelet Volume 9.7 fL (7.4-10.4); Platelet Count 307 K/uL (130-400); RDW Coefficient of Variation 14.9 % (11.5-14.5); RDW Standard Deviation 51.6 fL (36.4-46.3); Red Blood Count 3.92 M/uL (4.2-5.4); White Blood Count 6.84 K/uL (4.8-10.8)
[2020-01-10 10:31] LABS: BUN Creatinine Ratio 20.1 (10-20); Calcium 8.8 mg/dl (8.5-10.1); Creatinine Clr Calc Pharmacy 37.2 ml/min; Est GFR (African American) 51.6; Est GFR (Non-African American) 44.5; Potassium 4.2 mmol/L (3.5-5.1)
[2020-01-10] MEDS: BACLOFEN 10 MG TAB PO PRN (11:02)
--- NOTE | 2020-01-17 23:52 | Discharge Summary ---
Date of Service January 10, 2020 Admission HPI Per Admitting Provider Pattie Monge is a 69-year-old female with multiple sclerosis who presents to the ER on the advice of her PCP due to KING on outpatient labs. She reports left- sided back pain which started 1.5 weeks ago without trauma. She denies any prior history of back pain similar to this. She denies any history of renal stones. She does report her urine was dark initially, but denies dysuria, frequency, change in smell. She was seen by her PCP 2 days ago in [facility] and UA was grossly positive for infection, culture unknown and she was started on ciprofloxacin for infection which she reports taking as prescribed in addition to oxycodone for pain. Her creatinine however came back at 2.0 today therefore recommended she came to the emergency department for further evaluation. She does report since the onset of the pain taking 800 mg ibuprofen 4 times a day. She denies any epigastric pain, hematuria. The left-sided back pain has gradually got worse since onset, worse severity 10/10. No fevers or chills. With regards to the back pain she denies any urine incontinence/retention, change in bowel movements, perianal numbness, leg weakness or numbness. Principal Diagnosis volume overload Discharge Exam Constitutional: WD/WN, vitals as above Eyes: EOM intact bilaterally; no conjunctival abnormality ENMT: external ear and nose normal, oropharynx normal Neck: trachea midline, no thyromegaly normal visual inspection Respiratory: no distress, Auscultation: decreased crackles Cardiovascular: RRR, no murmur, no edema Gastrointestinal (Abdomen): Inspection/Auscultation: abdomen normal to inspection; abdomen not distended Musculoskeletal: no cyanosis or clubbing, extremities motor strength 5/5 Head/Neck/Chest: normocephalic Spine: no paraspinal tenderness (Along lateral left ribs) Skin: no rashes, warm and dry Neurologic: moves all extremities and awake Psychiatric: Orientation: alert, oriented to person and cooperative Discharge Data Allergies Allergy/AdvReac Type Severity Reaction Status Date / Time morphine Allergy Rash Verified 01/08/20 06:06 STEROIDS Allergy Unknown "I'M JUST Uncoded 01/05/20 12:59 OUT OF MY MIND AND HAVE SEIZURE-LIKE ACTIVITY" Consultations 01/05/20 14:53 ED Decision to Admit Stat 01/05/20 15:31 Consult Health Information Management Stat Ordered Studies 01/05/20 13:09 CT abd pelvis wo con Stat 01/07/20 12:00 US renal/blad retro comp Routine Hospital Course (1) Volume overload: Iatrogenic volume overload. The patient is on Lasix at baseline. This was held for KING and concern for possible kidney stone, and she has been on IV fluids since admission. Would NOT say this is CHF given it is iatrogenic from IV fluids. - Patient became more short of breath on 01/07. - CXR shows pulmonary edema. No signs of pneumonia (fever, leukocytosis, tachycardia). Has been on ceftriaxone at any rate for the possible UTI. - Stopped IV fluids; treated with lasix and improved. (2) Left flank pain: Suspect musculoskeletal back pain. Left paraspinal muscle spasm on exam. On 01/06, the patient was very upset and even angry about her pain. Despite discussion on multi-modal approach, she still felt like we were not treating her pain well. She reported this felt very much like a prior kidney stone. Testing only showed a possible punctate stone, but I consulted urology anyway in case of a radiolucent stone. Overnight, had a reaction to IV morphine. On 01/07, pain has resolved. - Continue: * Standing acetaminophen * Lidocaine patch * Heat therapy * Oxycodone PRN * Baclofen PRN - Cancel urology consult -Patient felt better, and is agreeable to discharge. discharge instructions below (3) Acute pyelonephritis: Questionable diagnosis in my mind. CVA tenderness seems more MSK to me. CT a/p on 01/04 showed possible punctate stone within the upper pole of the left kidney. No perinephric stranding or abscess noted. - Urine culture is mixed annabel. Blood cultures from 01/04 are negative so far. - ceftriaxone x 3 days total as I feelt this at most represents a typical UTI. (4) Acute kidney injury: In setting of dehydration & excessive ibuprofen use. Baseline Cr ~1.1, eGFR ~50. CKD, Stage III at baseline. Cr was 1.9 on admission. - Discontinued Lasix and ibuprofen initially. - Cr was 0.8 on 01/07; at baseline. - Stop IV fluids for hypervolemia. (5) Hypertension: BP is 150/70 at present. - Continue metoprolol - Lasix 40 mg IV x 1 given on 01/07 (6) Vitamin D deficiency: - Continue cholecalciferol (7) Urinary incontinence: - Continue oxybutynin ER 5 mg PO daily PRN (8) Depression: - Continue Lexapro 30 mg p.o. every morning (9) DVT prophylaxis: Heparin 5000 units SQ Q12h Total Time Total Time Spent Total Time Spent (In Minutes): 32 Total Time Includes: Examination of the Patient, Discharge Planning and Medication Reconciliation Discharge Plan Discharge Items Patient Disposition: Home - Self-Care Reason For Visit: KING, PYELONEPHRITIS Discharge Diagnosis: KING. Activity: Resume your previous activity Non-emergency contact: Primary Care Provider Call non-emergency contact if: you have any medication questions Follow-up/Referrals: Quinton Flores M.D. [Primary Care Provider] - 01/16/20 11:20 am Diet: Carb Consistent or DM2 Addtl Attending Provider Instructions: You have been hospitalized for an acute medical problem. During your stay at [facility], we have made an effort to correct the problem that brought you to the hospital while keeping you as comfortable as possible. Medications were used to bring your condition under control and your discharge instructions will include directions for any medications you should take after leaving the hospital. Please make sure you see your Primary Care Provider as part of your follow up plan. You were treated for an acute kidney injury. Will recommend to limit NSAIDs. These include: ibuprofen, motrin, diclofenac. Only over the counter pain medicine you can take will be lidocaine, and tylenol. will recommend followup with PCP in 1-2 weeks. May need followup with pain clinic if no improvement. Pending Studies at Discharge: No Stand-Alone Forms: My [facility] [employer], Smoking Cessation Medications and DC Order Prescriptions: New acetaminophen 500 mg Tablet 500 mg PO Q6H PRN (Reason: pain) Qty: 30 RF: 0 baclofen 10 mg Tablet 5 mg PO TID PRN (Reason: spasms/ back pain) Qty: 30 RF: 0 lidocaine 5 % Adhesive Patch,Medicated 1 patch transdermal QAM Qty: 30 RF: 0 Continued [id number] 1 tab PO QAM RF: 0 oxybutynin chloride 5 mg tablet extended release 24hr 5 mg PO QAM PRN (Reason: URINARY INCONTINENCE) RF: 0 clonazepam 1 mg tablet 2 mg PO HS RF: 0 furosemide 40 mg tablet 40 mg PO QAM RF: 0 melatonin 10 mg capsule 10 mg PO HS RF: 0 simvastatin 20 mg tablet 20 mg PO QAM RF: 0 cholecalciferol (vitamin D3) 125 mcg (5,000 unit) tablet 5,000 units PO QAM RF: 0 escitalopram oxalate 20 mg tablet 30 mg PO QAM RF: 0 aspirin 81 mg Tablet,Delayed Release (Dr/Ec) 81 mg PO QAM RF: 0 Bystolic 10 mg tablet 10 mg PO QAM RF: 0 cranberry 1,000 mg Capsule 1,000 mg PO QAM RF: 0 oxycodone 5 mg tablet 5 mg PO Q6H PRN (Reason: pain (scale score 7-10)) Qty: 14 RF: 0 Discontinued ibuprofen 200 mg Tablet 600 mg PO Q6H PRN (Reason: Pain) RF: 0 Discharge Orders: Discharge Order (Routine); Ordered 01/10/20 Ordered By: Luis Carlos Escobar/Other Patient Handouts: Lidocaine dermal patch, Baclofen tablets Admission Data Admit Date/Time: 01/05/20 15:47 Attending Provider: Luis Carlos Webb Admit Provider: Jovanny Hurst Primary Care Provider: Quinton Flores Other Providers: Colby Perez Other Interventions: Discharge Summary Assessment (RN) Last Done: 01/10/20 14:30 Coding Level of Care Code D/C Day Management >30 mins Diagnoses Volume overload E87.70 Left flank pain R10.9 Acute pyelonephritis N10 Acute kidney injury N17.9 Hypertension I10 Vitamin D deficiency E55.9 Urinary incontinence R32 Depression F32.9 DVT prophylaxis Z29.9
== END 2020-01-10 15:08 | disposition home or self-care (01) | DRG 690 ==
LOC: ED 11:33 → 2N 15:47 → SUATTDRO 15:47 → INTOOBSV 15:47 → 2N 17:21 → 3W 01-10 05:44